=== PATIENT | male | born 1980 | race Caucasian/White ===

== ENCOUNTER 2017-08-05 22:54 | Inpatient (IN) | payer OTHER ==
[~2017-08-05] VITALS: Ht 182.9 cm; Wt 132.9 kg
--- NOTE | 2017-08-05 23:45 | NUR ---
PT AMBULATORY TO ER BED 13. PT BIB FAMILY, PT C/O LEFT LEG CELLULITIS X 2 DAYS. PT ON OUTREACH CONSULTANT. VSS/RESP EVEN UNLABORED/NAD NOTED/SKIN WARM AND DRY/DENIES N-V-D/AFEBRILE/AOX4. AWAITING MD WU.
--- NOTE | 2017-08-06 00:10 | NUR ---
AT BEDSIDE FOR EVAL.
--- NOTE | 2017-08-06 00:27 | NUR ---
20G IV TO R AC X 1 ATTEMPT USING ASEPTIC TECH, BLOOD CULT X 2 AND BLOOD HANDED OVER TO LAB AT THE BEDSIDE. IV FLUSHES EASILY WITH NS. NO S/S INFILTRATION NOTED.
[2017-08-06] MEDS ORDERED: VANCOMYCIN 1 GM in IV D5W 250 ML IV ONE (00:30)
[2017-08-06] MEDS ORDERED: ACETAMINOPHEN 325 MG TABLET PO ONE (00:30)
[2017-08-06] MEDS ORDERED: CEFTRIAXONE 1 G in IV D5W 50 ML IV ONE (00:30)
[2017-08-06] MEDS ORDERED: IV NS 0.9% 1,000 ML BAG IV ONE ×3 (00:30→02:00)
[2017-08-06 00:31] LABS: BASOPHILS % (AUTO) 0.3 % (0.0-2.0); EOSINOPHILS % (AUTO) 2.1 % (0.0-6.0); HEMATOCRIT 36 % (39-51); HEMOGLOBIN 12.4 g/dL (13.5-17.5); LYMPHOCYTES # (AUTO) 1.6 /CMM (0.8-4.8); LYMPHOCYTES % (AUTO) 15.4 % (20.0-44.0); MEAN CORPUSCULAR HGB CONC 34 g/dl (31.0-36.0); MEAN CORPUSCULAR VOLUME 75 fL (80-96); MONOCYTES # (AUTO) 1.1 /CMM (0.1-1.30); MONOCYTES % (AUTO) 10.9 % (2.0-12.0); NEUTROPHILS # (AUTO) 7.5 /CMM (1.8-8.9); NEUTROPHILS % (AUTO) 71.3 % (43.0-81.0); PLATELET COUNT (AUTO) 337 /CMM (150-450); RDW COEFFICIENT OF VARIATION 13.4 (11.5-15.0); RED BLOOD CELL COUNT(AUTO) 4.85 MIL/uL (4.5-6.0); WHITE BLOOD COUNT (AUTO) 10.4 K/uL (4.3-11.0)
[2017-08-06] MEDS ORDERED: CEFTRIAXONE 1GM BAG (ER ONLY) 50 ML IV ONE (00:39)
[2017-08-06] MEDS ORDERED: ACETAMINOPHEN ES 500 MG TABLET ONE (00:40)
[2017-08-06] MEDS ORDERED: VANCOMYCIN 1 GM VIAL ONE (00:40)
--- NOTE | 2017-08-06 00:57 | NUR ---
DUPLEX AT BEDSIDE.
[2017-08-06 01:09] LABS: INR 1.04 (0.87-1.13)
[2017-08-06 01:13] LABS: ALANINE AMINOTRANSFERASE 27 U/L (12-78); ALBUMIN 1.5 g/dL (3.4-5.0); ALKALINE PHOSPHATASE 61 U/L (46-116); ASPARTATE AMINOTRANSFERASE 32 U/L (15-37); BILIRUBIN,DIRECT 0.1 mg/dL (0.0-0.2); BILIRUBIN,TOTAL 0.2 mg/dL (0.2-1.0); CALCIUM, SERUM 8.4 mg/dL (8.5-10.1); CARBON DIOXIDE 26 mmol/L (21-32); CHLORIDE 101 mmol/L (98-107); CREATININE 1.1 mg/dL (0.6-1.3); LIPASE 240 U/L (73-393); POTASSIUM 3.6 mmol/L (3.5-5.1); SODIUM SERUM 133 mmol/L (136-145); TOTAL PROTEIN, SERUM 6.4 g/dL (6.4-8.2); TROPONIN I < 0.017 ng/mL (0.00-0.056); UREA NITROGEN, BLOOD 15 mg/dL (7-18)
[2017-08-06 01:16] LABS: GLUCOSE 389 mg/dL (74-106)
[2017-08-06 01:25] LABS: APPEARANCE,URINE CLEAR (CLEAR); BILIRUBIN,URINE NEGATIVE (NEGATIVE); BLOOD, URINE 2+ Ery/uL (NEGATIVE); COLOR,URINE YELLOW (YELLOW); KETONES,URINE NEGATIVE (NEGATIVE); LEUKOCYTE ESTERASE ,URINE NEGATIVE (NEGATIVE); NITRITE, URINE NEGATIVE (NEGATIVE); PROTEIN,URINE 3+ mg/dl (NEGATIVE); UGLUCOSE 3+ mg/dL (NEGATIVE)
[2017-08-06 01:29] LABS: BACTERIA,URINE Few /HPF (None Seen); FINE GRANULAR CASTS,URINE Few /LPF (None Seen); SQUAMOUS EPITHELIAL CELL,UR Moderate /HPF (None Seen)
[2017-08-06] MEDS ORDERED: INSULIN REGULAR, HUMAN 100 UNIT/ML 10 ML VIAL SQ ONE (01:30)
[2017-08-06] MEDS ORDERED: INSULIN REGULAR, HUMAN 100 UNIT/ML 10 ML VIAL ONE (01:39)
--- NOTE | 2017-08-06 01:44 | NUR ---
regular insulin 6 units sq witnessed with Carrie LÓPEZ
--- NOTE | 2017-08-06 01:58 | NUR ---
REPORT GIVEN TO MARIBEL HAWK FOR KANDY.
[2017-08-06] MEDS ORDERED: HYDROCODONE/APAP 10/325MG 1 EA TABLET PO PRN (02:00)
[2017-08-06] MEDS ORDERED: MAGNESIUM HYDROXIDE 30 ML UDC PO PRN (02:00)
[2017-08-06] MEDS ORDERED: DEXTROSE 50%-WATER 50 ML DISP.SYRIN IV PRN (02:00)
[2017-08-06] MEDS ORDERED: ONDANSETRON HCL/PF 4 MG/2 ML VIAL IVP PRN (02:00)
[2017-08-06] MEDS ORDERED: Z GUARD REMEDY 2 OZ OINT TP PRN (02:00)
[2017-08-06] MEDS ORDERED: VANCOMYCIN 1 GM in IV NS 0.9% 250 ML IV SCH (02:00)
[2017-08-06] MEDS ORDERED: ZOLPIDEM TARTRATE 5 MG TABLET PO PRN (02:00)
[2017-08-06] MEDS ORDERED: MAG HYDROX/AL HYDROX/SIMETH 30 ML UDC PO PRN (02:00)
[2017-08-06] MEDS ORDERED: ENOXAPARIN SODIUM 40 MG/0.4 ML DISP.SYRIN SQ SCH (02:00)
[2017-08-06] MEDS ORDERED: HYDROCODONE/APAP 5/325MG 1 EACH TABLET PO PRN (02:00)
--- NOTE | 2017-08-06 02:08 | NUR ---
PT TRANSPORTED VIA STRETCHER TO MS RM 202 WITH EMT. VSS.
[2017-08-06 02:10] VITALS: BP 141/85
[2017-08-06 02:15] VITALS: BP 141/84
--- NOTE | 2017-08-06 02:15 | NUR ---
MS GALLEY COOK NOTES ADMITTED THIS 37 Y.O.MALE FROM ER PER HERBER WITH CELLULITIS OF LEFT LOWER LEG.A/O X4.ABLE TO AMBULATE.NOTED OLD SMALL WOUND WITH SCAB ON RIGHT LOWER LEG,BRUISE ON RIGHT UPPER ARM.C/O PAIN 4/10 ON PAIN SCALE,TOLERABLE PER PATIENT.WITH KNOWN HX OF MRSA 2 YRS AGO,PER NURSING DRY ROOM OPERATOR,NO NEED TO ISOLATE.SALINE LOCK RIGHT AC INTACT AND PATENT.STARTED ON NS AT 75ML/HR RATE.LOVENOX 4MG SQ ALSO STARTED.CALL LIGHT IN REACH,NEEDS ANTICIPATED.
[2017-08-06] MEDS ORDERED: VANCOMYCIN IV ONE (03:00)
[2017-08-06] MEDS ORDERED: D5W IV ONE (03:00)
--- NOTE | 2017-08-06 03:30 | NUR ---
MS RN NOTES WENT DOWN TO GRAB SOMETHING ON THE VENDING MACHINE ACCOMPANIED BY JADON RAMACHANDRAN.
[2017-08-06] MEDS: IV NS 0.9% 1,000 ML IV PRN (04:57)
--- NOTE | 2017-08-06 05:30 | NUR ---
MS RN NOTES ACCU-CHECK BLOOD SUGAR CHECK 292,KRISTI DAY NURSE WILL ADMINISTER HUMULIN R 9 UNITS PER MODERATE SLIDING SCALE.
[2017-08-06] MEDS: INSULIN REGULAR, HUMAN 100 UNIT/ML 3 ML VIAL SQ PRN ×4 (05:52→17:17)
--- NOTE | 2017-08-06 07:11 | NUR ---
MS RN NOTES CALM AND QUIET THRU OUT SHIFT,PAIN TOLERABLE SINCE ADMISSION.IVF IN PROGRESS.CALL LIGHT IN REACH,NEEDS ATTENDED.ENDORSED TO KRISTI LÓPEZ FOR KANDY.
--- NOTE | 2017-08-06 07:30 | NUR ---
RN OPEN NOTES RECEIVED REPORT FROM BUYER PLANNER NURSE. PATIENT IS IN BED, AWAKE AND ALERT. ORIENTED TO NAME, PLACE AND TIME. NO SIGNS AND SYMPTOMS OF DISTRESS. REFUSED GOWN AND WOULD LIKE TO STAY IN HIS SHIRT AND PANTS. BED IN LOW POSITION, LOCKED AND TWO SIDE RAILS ARE UP FOR SAFETY. CALL LIGHT WITHIN REACH. WILL CONTINUE TO MONITOR PATIENT
[2017-08-06 08:00] VITALS: BP 169/104
[2017-08-06] MEDS: BLOOD SUGAR DIAGNOSTIC 1 EACH STRIP VI SCH ×4 (08:07→22:56)
[2017-08-06] MEDS ORDERED: FEE PK DOSING 1 MIN EA MC ONE (09:50)
--- NOTE | 2017-08-06 10:56 | NUR ---
VANCOMYCIN IS NOT AVAILABLE. PHARMACY NOTIFIED.
[2017-08-06] MEDS: VANCOMYCIN 1.25 GM in IV D5W 500 ML IV SCH ×2 (11:59→17:12)
--- NOTE | 2017-08-06 15:55 | NUR ---
CALLED ABELINO SANTOYO REGARDING PATIENT HIGH BLOOD PRESSURE. COUNTERSINKER WILL ENTER BP MEDS
[2017-08-06 16:00] VITALS: BP 160/90
[2017-08-06] MEDS: ACETAMINOPHEN 325 MG TABLET PO PRN (16:04)
--- NOTE | 2017-08-06 16:19 | NUR ---
NATANAEL ROCA NP CALLED BACK THAT HE WILL ENTER THE BLOOD PRESSURE MEDS IN AN HOUR. NO TELEPHONE ORDERED RECEIVED
[2017-08-06] MEDS: hydrALAZINE HCL IV 20 MG VIAL IV PRN (16:35)
--- NOTE | 2017-08-06 16:35 | NUR ---
Hydralazine administered. Will recheck BP within 30 min for changes
[2017-08-06 17:20] VITALS: BP 136/79
--- NOTE | 2017-08-06 18:58 | NUR ---
RN CLOSING NOTES PATIENT IS AWAKE AND RESTING AT BED. MOTHER AT BEDSIDE. BED IN LOW POSITION, LOCKED AND TWO SIDE RAILS ARE UP. CALL LIGHT WITHIN REACH FOR SAFETY. IV SITE IN INTACT AND PATENT. ORIENTED TO NAME, TIME AND PLACE. ON ROOM AIR, TOLERATING WELL WITH NO SHORTNESS OF BREATH NOTED. ALL NEEDS AND CARE ATTENDED. PATIENT KEPT CLEAN, DRY AND SAFE. ALL ENDORSE TO DESIGN MAINTENANCE ENGINEER NURSE.
--- NOTE | 2017-08-06 19:30 | NUR ---
MS LÓPEZ NOTES RECEIVED RESTING COMFORTABLY ON BED,DENIES PAIN.REMAINS NPO EXCEPT MEDS AND WATER,AWAITING FOR OVA AND PARASITE STOOL EXAM RESULT.SALINE LOCK LAC INTACT AND PATENT,NS AT 100ML/HR RATE IN PROGRESS.AMBULATES TO THE TOILET.WILL CONTINUE FOR LOOSE BM.CALL LIGHT IN REACH,NEEDS ANTICIPATED Addendum: 08/06/17 at 2007 by LINH GOODEN RN WRONG ENTRY OF NOTES
--- NOTE | 2017-08-06 19:50 | NUR ---
MS RN NOTES ON BED CONVERSING WITH FAMILY MEMBERS.LEFT LEG REMAINS SWOLLEN AND REDDISH.SALINE LOCK RIGHT AC INTACT AND PATENT,IVF IN PROGRESS.ENCOURAGE TO ELEVATE LOWER EXTREMITIES ON PILLOWS WHILE ON BED.CALL LIGHT IN REACH,NEEDS ANTICIPATED.
[2017-08-06 20:00] VITALS: BP 145/87
[2017-08-06] MEDS: ENOXAPARIN SODIUM 40 MG/0.4 ML DISP.SYRIN SQ SCH (21:28)
--- NOTE | 2017-08-06 22:45 | NUR ---
MS RN NOTES ACCU-CHECK BLOOD SUGAR CHECK 353,HUMULIN 10UNITS ADMINISTERED SQ ON LEFT DELTOID PER MODERATE SLIDING SCALE.
--- NOTE | 2017-08-06 22:57 | NUR ---
MS RN NOTES C/O CONSTIPATION,MILK OF MAGNESIA 30ML PO GIVEN ORDERED.
[2017-08-06] MEDS: *INSULIN REGULAR(HUMULIN R)HUM 100 UNIT/ML VIAL SQ PRN (23:04)
[2017-08-06] MEDS: CEFTRIAXONE 1 G in IV NS 0.9% 50 ML IV SCH (23:47)
[2017-08-07] MEDS: VANCOMYCIN 1.25 GM in IV D5W 500 ML IV SCH ×3 (02:06→17:40)
--- NOTE | 2017-08-07 03:00 | NUR ---
MS RN NOTES IV SITE INFILTRATED.NEW SALINE LOCK PLACE ON LEFT AC #20,SAME IV ABX INFUSING AT THIS TIME.
--- NOTE | 2017-08-07 06:30 | NUR ---
MS RN NOTES DR MEYER MADE AWARE ALSO THAT PATIENT REFUSING NORCO DUE TO HEADACHE THAT CAUSE IT.NO FURTHER ORDERS GIVEN.PATIENT MADE AWARE.
--- NOTE | 2017-08-07 06:30 | NUR ---
MS RN NOTES DR MEYER MADE AWARE OF PATIENT BLOOD SUGAR,WITH ORDER TO GIVE 20 UNITS OF HUMULIN FOR BLOOD SUGAR OF 433.ASYMPTOMATIC,NON COMPLIANT,EAT A LOT,ALSO SOUP IN THE MORNING.
--- NOTE | 2017-08-07 06:45 | NUR ---
MS RN NOTES PATIENT INSISTED TO HAVE WARM SHOWER.HE WANTS TO RUN WARM WATER ON HIS LEGS TO RELIEVE PAIN.HE WAS ADVISED NOT TO FOR HE IS PRONE TO DEVELOP BLISTER ON THAT SITUATION BUT HE STILL INSIST.
[2017-08-07] MEDS: BLOOD SUGAR DIAGNOSTIC 1 EACH STRIP VI SCH ×4 (06:47→21:45)
[2017-08-07] MEDS ORDERED: INSULIN REGULAR, HUMAN 100 UNIT/ML 3 ML VIAL SQ ONE (07:00)
--- NOTE | 2017-08-07 07:16 | NUR ---
MS RN NOTES PHARMACY MADE AWARE THAT VANCOMYCIN DOSE HUNG AT 0200 WAS BARELY INFUSED.PATIENT HAS NEW SALINE LOCK #20 ON LEFT AC BUT HE KEEPS ON BENDING HIS ELBOW,TENDENCY,MACHINE KEEPS ON BEEPING,IT SAYS OCCLUSIONS.PHARMACIST WILL TAKE A LOOK ON IT.RADHA RN MADE AWARE.
--- NOTE | 2017-08-07 07:24 | NUR ---
MS RN NOTES HARD TO PLEASE,NON COMPLIANT WITH CARE.IN NO ACUTE DISTRESS.ENDORSED TO RADHA LÓPEZ FOR KANDY.
[2017-08-07 07:34] LABS: CREATININE 1.1 mg/dL (0.6-1.3); MAGNESIUM 2.5 mg/dL (1.8-2.4); PHOSPHORUS 3.1 mg/dL (2.5-4.9); POTASSIUM 3.9 mmol/L (3.5-5.1)
[2017-08-07 07:37] LABS: THYROID STIMULATING HORMONE 5.023 uIU/mL (0.358-3.74)
--- NOTE | 2017-08-07 07:50 | NUR ---
MS RN NOTES PATIENT JUST HAD SHOWER AND BACK TO BED, LEFT LOWER LEG APPEARS RED AND SWOLLEN. PATIENT IS A/O X4, AMBULATORY. IV ANTIBIOTIC VANCOMYCIN NOT FINISHED INFUSING ON THE SCHEDULED TIME. NEW PLACED IVC CATH IN LEFT AC G20 BY NIGHT RN APPEARS INTACT, ATTEMPTED TO FLUSH WITH SALINE TO CHECK PATENCY, BUT PATIENT REFUSING, STATING HE KNOWS HE'S ARM AND HE FLUSHED HIS IV WITH RN LAST NIGHT, STILL NOT WORKING AND WANTS A NEW IV LINE TO BE PLACED IN AGAIN. PATIENT APPEARS DEMANDING AND NOT ACCEPTING EDUCATION AND TEACHING FROM RN. SAFETY MEASURES IN PLACE.
[2017-08-07 07:55] LABS: BASOPHILS # (AUTO) 0.1 /CMM (0.0-0.2); BASOPHILS % (AUTO) 0.5 % (0.0-2.0); HEMATOCRIT 34 % (39-51); HEMOGLOBIN 11.5 g/dL (13.5-17.5); LYMPHOCYTES # (AUTO) 1.6 /CMM (0.8-4.8); LYMPHOCYTES % (AUTO) 14.9 % (20.0-44.0); MEAN CORPUSCULAR HGB CONC 34 g/dl (31.0-36.0); MEAN CORPUSCULAR VOLUME 74 fL (80-96); MONOCYTES # (AUTO) 0.9 /CMM (0.1-1.30); MONOCYTES % (AUTO) 8.5 % (2.0-12.0); NEUTROPHILS # (AUTO) 7.8 /CMM (1.8-8.9); NEUTROPHILS % (AUTO) 73.1 % (43.0-81.0); PLATELET COUNT (AUTO) 402 /CMM (150-450); RDW COEFFICIENT OF VARIATION 13.3 (11.5-15.0); RED BLOOD CELL COUNT(AUTO) 4.51 MIL/uL (4.5-6.0); WHITE BLOOD COUNT (AUTO) 10.6 K/uL (4.3-11.0)
[2017-08-07 08:00] VITALS: BP 140/92
--- NOTE | 2017-08-07 10:08 | NUR ---
IVC RE INSERTION BY ANOTHER RN, UNSUCCESSFUL X2. PATIENT AGREED TO USE CURRENT IV LINE IN LEFT AC, PATENT AND INTACT.
[2017-08-07 10:25] LABS: EOSINOPHILS % (MANUAL) 3 % (0-4); LYMPHOCYTES % (MANUAL) 17 % (16-48); MONOCYTES % (MANUAL) 12 % (0-11.0); NEUTROPHILS % (MANUAL) 68 (42-76)
[2017-08-07] MEDS: IV NS 0.9% 1,000 ML IV PRN (10:37)
[2017-08-07] MEDS: INSULIN REGULAR, HUMAN 100 UNIT/ML 3 ML VIAL SQ PRN ×2 (12:33→17:46)
[2017-08-07] MEDS ORDERED: FENTANYL PF 100MCG/2ML AMPUL IJ PRN (14:00)
--- NOTE | 2017-08-07 14:45 | NUR ---
DR. POTTS ORDERED DEBRIDEMENT WOUND, PATIENT CONSENTED THE PROCEDURE. LEFT HEEL WOUND DEBRIDEMENT AT THE BEDSIDE PERFORMED BY DR. SANCHEZ. PATIENT TOLERATED PROCEDURE WELL.
[2017-08-07] MEDS: LACTOBACILLUS RHAMNOSUS GG 1 EACH CAP.SPRINK PO SCH ×2 (17:39→18:12)
--- NOTE | 2017-08-07 18:13 | NUR ---
PROBIOTIC LACTUBACILLUS CAPSULE NON ADMINISTERED, PRESENTED MEDICATION-LACTOBACILLUS CAPSULE TO PATIENT IN GOOD CONDITION, UNOPENED CAPSULE NOT PUNCTURED. PER PATIENT REQUEST LEAVE MEDICATION AT THE BEDSIDE TABLE AND HE WILL TAKE IT. AFTER FEW MINUTES, PATIENT REPORTED CAPSULE WAS OPENED AND REFUSING TO TAKE THE MEDICATION.
--- NOTE | 2017-08-07 19:00 | NUR ---
MS RR CLOSING NOTES DENIES PAIN, LEFT HEEL DRESSING IN PLACE, NO BLEEDING NOTED. BLOOD SUGAR MONITORED WITH ISS COVERAGE GIVEN. IV ANTIBIOTIC NOT INFUSING, PATIENT IS NON COMPLIANT WITH IVF INFUSION AND ANTIBIOTIC IV, PATIENT STATING "HE WILL CONNECT HIMSELF TO THE IV LATER". SAFETY MEASURES IN PLACE, WILL ENDORSE TO ONCOMING RN .
--- NOTE | 2017-08-07 19:40 | NUR ---
rn note; RECEIVED PT SITTING AT THE EDGE OF THE BED. BREATHING EVENLY. NO SOB. NAD. STILL W/ LLE REDNESS AND SWELLING ON ONGOING IV ATB. DRESSING ON L HELL C/D/I. PT WAS INSTRUCTED TO AVOID PRESSURE ON THE SITE. NEEDS ATTENDED . CALL LIGHT WITHIN REACH. WILL CONT TO MONITOR .
[2017-08-07 20:00] VITALS: BP 160/90
[2017-08-07] MEDS: ENOXAPARIN SODIUM 40 MG/0.4 ML DISP.SYRIN SQ SCH (21:38)
[2017-08-07] MEDS: *INSULIN REGULAR(HUMULIN R)HUM 100 UNIT/ML VIAL SQ PRN (21:53)
[2017-08-07] MEDS: INSULIN GLARGINE, 100 UNIT/ML CARTRIDGE SQ SCH (21:53)
[2017-08-07] MEDS ORDERED: TEMAZEPAM 7.5 MG CAPSULE PO PRN (23:30)
[2017-08-07] MEDS: CEFTRIAXONE 1 G in IV NS 0.9% 50 ML IV SCH (23:59)
[2017-08-08] MEDS: VANCOMYCIN 1.25 GM in IV D5W 500 ML IV SCH ×3 (02:29→17:46)
[2017-08-08] MEDS: BLOOD SUGAR DIAGNOSTIC 1 EACH STRIP VI SCH ×4 (06:46→21:38)
--- NOTE | 2017-08-08 06:56 | NUR ---
PT IN BED SLEEPING, AROUSES EASILY. BREATHING EVENLY. NO SOB. NO ACUTE EVENT DURING THE NIGHT. REMAINED ON IVF HYDRATION. NO C/O PAIN OR DISCOMFORT .NEEDS ATTENDED. BED LOW LOCKED. CALL LIGHT WITHIN REACH.WILL CONT TO MONITOR AND WILL ENDORSE TO AM SHIFT FOR KANDY .
[2017-08-08] MEDS: INSULIN REGULAR, HUMAN 100 UNIT/ML 3 ML VIAL SQ PRN ×3 (06:59→17:45)
--- NOTE | 2017-08-08 07:30 | NUR ---
ms rn initial notes Received patient in bed, asleep, head of bed elevated, no SOB or distress noted, on room air and tolerated well. Patient is alert and oriented x 4, verbally responsive and able to make needs known. IV intact and patent with NS @ 75ml/hr, infusing well. No facial grimace noted, looks comfortable at the moment. Call light with in patient reach, will continue to monitor accordingly.
--- NOTE | 2017-08-08 07:50 | NUR ---
WOUND CARE CONSULT WOUND CARE RECEIVED CONSULT FOR LLE CELLULITIS. WOUND CARE WILL DEFER CONSULT AND TREATMENT PLANS TO SURGICAL TEAM AT THIS TIME DPM CURRENTLY FOLLOWING. PATIENT WITH MICHAEL AT 22.
[2017-08-08 08:00] VITALS: BP 150/75
[2017-08-08] MEDS ORDERED: HYDROGEL DRESSING 90 GM TUBE TP PRN (08:00)
[2017-08-08] MEDS: HYDROGEL DRESSING 90 GM TUBE TP SCH (09:26)
[2017-08-08] MEDS: LACTOBACILLUS RHAMNOSUS GG 1 EACH CAP.SPRINK PO SCH ×2 (09:26→17:44)
[2017-08-08 10:30] LABS: BASOPHILS # (AUTO) 0.1 /CMM (0.0-0.2); BASOPHILS % (AUTO) 0.5 % (0.0-2.0); HEMATOCRIT 33 % (39-51); HEMOGLOBIN 11.2 g/dL (13.5-17.5); LYMPHOCYTES % (AUTO) 19.5 % (20.0-44.0); MEAN CORPUSCULAR HGB CONC 34 g/dl (31.0-36.0); MEAN CORPUSCULAR VOLUME 74 fL (80-96); MONOCYTES # (AUTO) 0.9 /CMM (0.1-1.30); MONOCYTES % (AUTO) 8.5 % (2.0-12.0); NEUTROPHILS # (AUTO) 6.9 /CMM (1.8-8.9); NEUTROPHILS % (AUTO) 67.5 % (43.0-81.0); PLATELET COUNT (AUTO) 449 /CMM (150-450); RDW COEFFICIENT OF VARIATION 13.6 (11.5-15.0); RED BLOOD CELL COUNT(AUTO) 4.43 MIL/uL (4.5-6.0); WHITE BLOOD COUNT (AUTO) 10.3 K/uL (4.3-11.0)
[2017-08-08 10:31] LABS: CALCIUM, SERUM 8.1 mg/dL (8.5-10.1); POTASSIUM 3.8 mmol/L (3.5-5.1)
[2017-08-08 16:00] VITALS: BP 163/98
[2017-08-08] MEDS: INSULIN LISPRO/ASPART 100 UNIT/ML CARTRIDGE SQ SCH (17:46)
--- NOTE | 2017-08-08 19:25 | NUR ---
ms rn closing notes All needs provided, attended, and anticipated. In stable condition at this time. Endorsed to next shift RN to continue care.
--- NOTE | 2017-08-08 19:30 | NUR ---
RECEIVED PT IN BED SLEEPING, . AROUSES EASILY. BREATHING EVENLY NO SOB. NAD .SKIN WARM AND DRY. ON ONGOING IVF HYDRATION PRASHANT WELL . NO C/O PAIN OR DISCOMFORT AT THIS TIME. CALL LIGHT WITHIN REACH, WILL CONT TO MONITOR , FAMILY AT THE BED SIDE
[2017-08-08 20:00] VITALS: BP 159/99
[2017-08-08] MEDS: INSULIN GLARGINE, 100 UNIT/ML CARTRIDGE SQ SCH (21:46)
[2017-08-08] MEDS: *INSULIN REGULAR(HUMULIN R)HUM 100 UNIT/ML VIAL SQ PRN (21:46)
[2017-08-08] MEDS: ENOXAPARIN SODIUM 40 MG/0.4 ML DISP.SYRIN SQ SCH (21:47)
[2017-08-08] MEDS: CEFTRIAXONE 1 G in IV NS 0.9% 50 ML IV SCH (23:50)
[2017-08-08] MEDS: IV NS 0.9% 1,000 ML IV PRN (23:55)
[2017-08-09] MEDS: VANCOMYCIN 1.25 GM in IV D5W 500 ML IV SCH ×2 (01:28→12:38)
[2017-08-09] MEDS: hydrALAZINE HCL IV 20 MG VIAL IV PRN ×3 (01:28→16:18)
--- NOTE | 2017-08-09 01:32 | NUR ---
HYDRALAZINE GIVEN ORDERED FOR SBP> 160. WILL CONT TO MONITOR,
--- NOTE | 2017-08-09 04:18 | NUR ---
FENTANYL GIVEN ORDERED PER PT'S REQUEST TFOR C/O SEVERE LLE PAIN. WILL CONT TO MONITOR
[2017-08-09] MEDS: BLOOD SUGAR DIAGNOSTIC 1 EACH STRIP VI SCH ×4 (06:58→21:30)
[2017-08-09] MEDS: INSULIN REGULAR, HUMAN 100 UNIT/ML 3 ML VIAL SQ PRN ×2 (06:59→12:44)
--- NOTE | 2017-08-09 07:39 | NUR ---
PT IN BED SLEEPING AROUSES EASILY. BREATHING EVENLY. NO SOB. NO ACUTE EVENT DURING THE NIGHT. PAIN MEDIATION GIVEN ORDERED PER PT'S REQUEST AND WARM COMPRESS APPLIED . EFFECTIVE. NEEDS ATTENDED. REPORT GIVEN TO BEAU GAITAN.
[2017-08-09 08:00] VITALS: BP 159/80
[2017-08-09 08:20] VITALS: BP 164/98
--- NOTE | 2017-08-09 08:22 | NUR ---
RN NOTES REASSESSMENT DONE AFTER 30 MINS OF HYDRALAZINE ADMINISTRATION. BP AT 164/98 WITH HR OF 100. PATIENT DENYING HEADACHES AND DENYING CHEST PAIN
[2017-08-09 08:40] VITALS: BP 159/80
[2017-08-09] MEDS: INSULIN LISPRO/ASPART 100 UNIT/ML CARTRIDGE SQ SCH ×2 (09:20→18:30)
[2017-08-09] MEDS: LACTOBACILLUS RHAMNOSUS GG 1 EACH CAP.SPRINK PO SCH ×2 (09:20→16:20)
--- NOTE | 2017-08-09 10:33 | NUR ---
PATIENT REFUSING BLOOD DRAW FOR VANCO TROUGH WELL BMP. BENEFITS AND RISKS EXPLAINED TO PATIENT. OFFERED MULTIPLE TIMES. STILL REFUSING. PHARMACY NOTIFIED. PER MAXINE FROM PHARMACY, OK TO GIVE CURRENT VANCO DOSE OF 1.25 GM, ORDER READBACK
[2017-08-09] MEDS: HYDROGEL DRESSING 90 GM TUBE TP SCH (14:00)
[2017-08-09 16:00] VITALS: BP 174/85
--- NOTE | 2017-08-09 16:21 | NUR ---
HYDRALAZINE ADMINISTERED PER ORDERS. BP AT 171/89 WITH HR OF 98. DENYING CHEST PAIN. NONLABORED BREATHING NOTED ON ROOM AIR. DENYING HEADACHES. NO TELE BOX REQUIRED PER PROTOCOL. PATIENT ALSO REFUSING WOUND TREATMENT. BENEFITS AND RISKS EXPLAINED. DR SANCHEZ NOTIFIED
--- NOTE | 2017-08-09 17:00 | NUR ---
PATIENT REFUSING TO HAVE BLOOD PRESSURE REASSESSED.
[2017-08-09] MEDS: VANCOMYCIN 1 GM in IV D5W 250 ML IV SCH (18:00)
--- NOTE | 2017-08-09 18:00 | NUR ---
PATIENT REFUSING INSULIN AND BLOOD SUGAR CHECK. REFUSING VANCOMYCIN WELL. BENEFITS AND RISKS EXPLAINED. IV SITE PATENT AND INTACT. OFFERED TO START ANOTHER IV ON PATIENT. PATIENT STATING " I DONT WANT YOU POKING ME!" BENEFITS AND RISKS EXPLAINED
--- NOTE | 2017-08-09 18:30 | NUR ---
BENEFITS AND RISKS OF TREATMENT EXPLAINED TO PATIENT MULTIPLE TIMES DURING SHIFT
--- NOTE | 2017-08-09 19:30 | NUR ---
RN NOTES RECEIVED PATIENT IN BED AWAKE, AO X 3, ABLE TO MAKE NEEDS KNOWN. NO ACUTE DISTRESS NOTED. DENIES ANY PAIN AT THIS TIME. NO SYMPTOMS OF HYPER/HYPOGLYCEMIA. IV SITE PATENT, INTACT; FLUSHED. LEFT FOOT DRESSING INTACT. SAFETY REMINDERS GIVEN. ON LOW BED WITH BILATERAL UPPER SIDE RAILS UP. CALL CHRIS WITHIN EASY REACH. WILL CONTINUE TO MONITOR.
--- NOTE | 2017-08-09 19:30 | NUR ---
PATIENT RESTING IN BED. NONLABORED BREATHING NOTED ON ROOM AIR. PATIENT AOX4. IV SITE ON LEFT AC PATENT AND INTACT. BED IN LOWEST LOCKED POSITION. CALL LIGHT WITHIN REACH. PATIENT STABLE THROUGHOUT SHIFT. ENDORSED TO NEXT SHIFT
[2017-08-09 20:00] VITALS: BP 150/80
--- NOTE | 2017-08-09 20:23 | NUR ---
BROWN VERA NP, NOTIFIED THAT PATIENT REFUSING MEDICATIONS, INSULIN, BMP, WELL ANTIBIOTICS
[2017-08-09] MEDS: INSULIN GLARGINE, 100 UNIT/ML CARTRIDGE SQ SCH (21:34)
[2017-08-09] MEDS: ENOXAPARIN SODIUM 40 MG/0.4 ML DISP.SYRIN SQ SCH (21:34)
[2017-08-09] MEDS: *INSULIN REGULAR(HUMULIN R)HUM 100 UNIT/ML VIAL SQ PRN (21:38)
[2017-08-10] MEDS: CEFTRIAXONE 1 G in IV NS 0.9% 50 ML IV SCH ×2
[2017-08-10] MEDS: VANCOMYCIN 1 GM in IV D5W 250 ML IV SCH ×2 (02:00→14:00)
--- NOTE | 2017-08-10 06:30 | NUR ---
N NOTES PATIENT ASLEEP, EASILY AROUSABLE. RESPIRATIONS EVEN. NO SIGNS OF PAIN NOTED. NO SYMPTOMS OF HYPER/HYPOGLYCEMIA. PATIENT REFUSED IV ANTIBIOTICS. NEEDS ATTENDED. SAFETY PRECAUTIONS AND COMFORT MEASURES IN PLACE. WILL GIVE REPORT TO DAY SHIFT FOR CONTINUITY OF CARE.
[2017-08-10] MEDS: BLOOD SUGAR DIAGNOSTIC 1 EACH STRIP VI SCH ×2 (06:35→12:46)
[2017-08-10] MEDS: INSULIN REGULAR, HUMAN 100 UNIT/ML 3 ML VIAL SQ PRN ×2 (06:36→12:45)
[2017-08-10 08:00] VITALS: BP 170/91
--- NOTE | 2017-08-10 08:16 | NUR ---
PER BROWN VERA NP, CATAPRES 0.1 PO Q 6 HOURS PRN FOR SBP GREATER THAN 180 OR DBP GREATER THAN 110
[2017-08-10] MEDS ORDERED: CLONIDINE HCL 0.1 MG TABLET PO PRN (08:30)
[2017-08-10 09:01] VITALS: BP 158/80
[2017-08-10] MEDS: ACETAMINOPHEN 325 MG TABLET PO PRN (09:06)
[2017-08-10] MEDS: LACTOBACILLUS RHAMNOSUS GG 1 EACH CAP.SPRINK PO SCH (09:07)
[2017-08-10] MEDS: INSULIN LISPRO/ASPART 100 UNIT/ML CARTRIDGE SQ SCH (09:15)
--- NOTE | 2017-08-10 12:00 | NUR ---
PATIENT REFUSING VANCOMYCIN. BENEFITS AND RISKS EXPLAINED. PATIENT STATES THAT MEDICATION IS BURNING HIS VEINS. OFFERED PATIENT TO START ANOTHER IV. STILL REFUSING. PATIENT ALSO REFUSING WOUND DRESSING CHANGE. STATES HE WANTS TO REST. BROWN VERA NP, NOTIFIED
[2017-08-10] MEDS: HYDROGEL DRESSING 90 GM TUBE TP SCH (14:00)
--- NOTE | 2017-08-10 14:19 | NUR ---
PATIENT REFUSING LANTUS OFFERED BY BROWN VERA NP, UPON DISCHARGE PLANNING. BENEFITS AND RISKS EXPLAINED TO PATIENT
[2017-08-10] MEDS ORDERED: ONDA4TAB5 PO (14:38)
[2017-08-10] MEDS ORDERED: OXYC-133 PO (14:38)
--- NOTE | 2017-08-10 15:37 | NUR ---
RN CLOSING NOTES: PATIENT DISCHARGED HOME PER BROWN VERA, NINO, ORDERS. PATIENT STABLE. NONLABORED BREATHING NOTED ON ROOM AIR. PATIENT DENYING PAIN. VS WNL UPON DISCHARGE. IV SITE REMOVED. PATIENT STABLE. THROUGHOUT SHIFT. AFEBRILE AT DISCHARGE. PATIENT EDUCATED ON PRESCRIBED MEDICATIONS, EXISTCARE, WOUND TREATMENT, WELL FOLLOW UP WITH PRIMARY PROVIDER. PATIENT REFUSED SKIN PICTURES WELL WOUND TREATMENT. BENEFITS AND RISKS EXPLAINED TO PATIENT THROUGHOUT SHIFT. PATIENT LEFT WITH LYFT, ACCOMPANIED BY LITIGATION ATTORNEY ASSOCIATE IN A WHEELCHAIR TO THE CAR. ALL BELONGINGS TAKEN WITH PATIENT. PRESCRIPTION GIVEN TO PATIENT. VERBALIZED UNDERSTANDING OF INSTRUCTIONS
== END 2017-08-10 15:55 | disposition home or self-care (01) | DRG 720 ==
LOC: ER 22:56 → MEDSG2 08-06 02:13
PROC: 0JBR0ZZ Excision of Left Foot Subcutaneous Tissue and Fascia, Open Approach (ICD-10-PCS; principal; 2017-08-07)
DX: A41.9 Sepsis, unspecified organism (principal); E11.621 Type 2 diabetes mellitus with foot ulcer; E11.42 Type 2 diabetes mellitus with diabetic polyneuropathy; E44.0 Moderate protein-calorie malnutrition; L97.429 Non-pressure chronic ulcer of left heel and midfoot with unspecified severity; E11.65 Type 2 diabetes mellitus with hyperglycemia; L03.116 Cellulitis of left lower limb; I10 Essential (primary) hypertension; E87.1 Hypo-osmolality and hyponatremia; F17.210 Nicotine dependence, cigarettes, uncomplicated; E66.01 Morbid (severe) obesity due to excess calories; Z68.39 Body mass index [BMI] 39.0-39.9, adult; K21.9 Gastro-esophageal reflux disease without esophagitis; Z91.14 Patient's other noncompliance with medication regimen; E03.9 Hypothyroidism, unspecified
CPT/HCPCS: 36415; 80048-TC; 80061-TC; 80076-TC; 80202-TC; 81000-TC; 82962-TC; 83605-TC; 83690-TC; 83735-TC; 84100-TC; 84439-TC; 84443-TC; 84480; 84484-TC; 85025-TC; 85730-TC; 87040-TC; 87081-TC; 93971-TC; A4216; A4606; A6248; A6402; J0360; J0696; J1650; J1815; J3010; J3370; J7030; J7040; J7050; J7060; Z7610

== ENCOUNTER 2018-03-24 03:05 | Inpatient (IN) | payer MEDICAID, OTHER ==
[~2018-03-24] VITALS: Ht 182.9 cm; Wt 139.8 kg
[~2018-03-24 03:05] MED LIST: ONDA4TAB5 PO; OXYC-133 PO
--- NOTE | 2018-03-24 03:30 | NUR ---
PT BIBSELF COMPLAINING OF BILATERAL LOWER EXTREMITY EDEMA X2 DAYS. NOTED REDNESS AND TENDER TO TOUCH ON RIGHT LOWER EXREMITY. NOTED YELLOW DISCOLORATION BILATERAL TOES. PT AAOX4. RESPIRATIONS EVEN AND UNLABORED. NO ACUTE DISTRESS NOTED AT THIS TIME. PT AMBULATORY TO ER BED 9
--- NOTE | 2018-03-24 03:31 | NUR ---
MD AT BEDSIDE FOR EVALUATION
--- NOTE | 2018-03-24 03:40 | NUR ---
US AT BEDSIDE
--- NOTE | 2018-03-24 03:52 | NUR ---
IV INITIATED RIGHT AC 20G. LABS DRAWN FROM SITE. COMPUTING TUTOR AT BEDSIDE FOR COLLECTION. IV INTACT AND PATENT. FLUIDS RUNNING PER MD ORDER
[2018-03-24 03:56] LABS: BASOPHILS % (AUTO) 0.3 % (0.0-2.0); EOSINOPHILS % (AUTO) 3.2 % (0.0-6.0); HEMATOCRIT 35 % (39-51); HEMOGLOBIN 11.6 g/dL (13.5-17.5); LYMPHOCYTES # (AUTO) 1.4 /CMM (0.8-4.8); MEAN CORPUSCULAR HGB CONC 34 g/dl (31.0-36.0); MEAN CORPUSCULAR VOLUME 78 fL (80-96); MONOCYTES # (AUTO) 0.6 /CMM (0.1-1.30); MONOCYTES % (AUTO) 8.4 % (2.0-12.0); NEUTROPHILS # (AUTO) 4.9 /CMM (1.8-8.9); NEUTROPHILS % (AUTO) 68.1 % (43.0-81.0); PLATELET COUNT (AUTO) 250 /CMM (150-450); RED BLOOD CELL COUNT(AUTO) 4.47 MIL/uL (4.5-6.0); WHITE BLOOD COUNT (AUTO) 7.2 K/uL (4.3-11.0)
[2018-03-24] MEDS ORDERED: IV NS 0.9% 1,000 ML BAG IV ONE (04:00)
[2018-03-24 04:12] LABS: CALCIUM, SERUM 7.9 mg/dL (8.5-10.1); POTASSIUM 3.9 mmol/L (3.5-5.1)
[2018-03-24] MEDS ORDERED: HYDROCODONE/APAP 10/325MG 1 EA TABLET ONE (04:53)
[2018-03-24] MEDS ORDERED: PIPERACILLIN /TAZOBACTAM 3.375 G VIAL IV ONE (04:53)
[2018-03-24] MEDS ORDERED: INSULIN REGULAR, HUMAN 100 UNIT/ML 10 ML VIAL ONE (04:54)
[2018-03-24] MEDS ORDERED: INSULIN REGULAR, HUMAN 100 UNIT/ML 10 ML VIAL SQ ONE (05:00)
[2018-03-24] MEDS ORDERED: PIPERACILLIN /TAZOBACTAM 2.25 G in IV D5W 50 ML IV ONE (05:00)
[2018-03-24] MEDS ORDERED: VANCOMYCIN 1 GM in IV D5W 250 ML IV ONE (05:00)
[2018-03-24] MEDS ORDERED: HYDROCODONE/APAP 10/325MG 1 EA TABLET PO ONE (05:00)
[2018-03-24] MEDS ORDERED: IV NS 0.9% 1,000 ML IV PRN (05:05)
[2018-03-24] MEDS ORDERED: VANCOMYCIN 1 GM VIAL ONE (05:06)
[2018-03-24] MEDS ORDERED: MORPHINE SULFATE INJ 2 MG/ML DISP.SYRIN IV STA (05:14)
[2018-03-24] MEDS ORDERED: ONDANSETRON HCL/PF 4 MG/2 ML VIAL IVP PRN (05:30)
[2018-03-24] MEDS ORDERED: HYDROCODONE/APAP 5/325MG 1 EACH TABLET PO PRN (05:30)
[2018-03-24] MEDS ORDERED: TEMAZEPAM 15 MG CAPSULE PO PRN (05:30)
[2018-03-24] MEDS ORDERED: HYDROCODONE/APAP 10/325MG 1 EA TABLET PO PRN (05:30)
[2018-03-24] MEDS ORDERED: DEXTROSE 50%-WATER 50 ML DISP.SYRIN IV PRN (05:30)
[2018-03-24] MEDS ORDERED: MAGNESIUM HYDROXIDE 30 ML UDC PO PRN (05:30)
[2018-03-24] MEDS ORDERED: ACETAMINOPHEN 325 MG TABLET PO PRN (05:30)
[2018-03-24] MEDS ORDERED: MAG HYDROX/AL HYDROX/SIMETH 30 ML UDC PO PRN (05:30)
--- NOTE | 2018-03-24 05:32 | NUR ---
GAVE REPORT TO SHARLA LÓPEZ FOR KANDY
--- NOTE | 2018-03-24 05:52 | NUR ---
PT TRANSFERRED TO MS BED 312-2 VIA WHEELCHAIR
[2018-03-24 06:15] VITALS: BP 184/108
[2018-03-24] MEDS ORDERED: MORPHINE SULFATE INJ 4 MG/ML DISP.SYRIN IV PRN ×2 (06:30→11:30)
[2018-03-24] MEDS: BLOOD SUGAR DIAGNOSTIC 1 EACH STRIP VI SCH ×4 (06:42→21:08)
[2018-03-24] MEDS: INSULIN REGULAR, HUMAN 100 UNIT/ML 3 ML VIAL SQ PRN ×3 (06:49→17:35)
--- NOTE | 2018-03-24 07:01 | NUR ---
MACHINE II ENGRAVER NOTES PT ARRIVED ON TO THE UNIT AT 0545 VIA WHEELCHAIR. ACCOMPANIED BY . PT COMPLAINS OF BILATERAL LOWER EXTREMITY EDEMA X2 DAYS. PT HAS A RIGHT AC #20 INTACT AND PATENT. PT EDUCATED TO THE USE OF THE CALL LIGHT BUTTON. ALL PT BELONGINGS ACCOUNTED FOR AND DOCUMENTED. PT BLE PICTURES TAKEN AND ADDED TO CHART. PT BLOOD SUGAR 454, 15 UNITS OF INSULIN GIVEN. PT GIVEN 2 MG OF MORPHINE. WASTED TO 2MG. SAFETY PRECAUTIONS IN PLACE, BED IN LOWEST LOCKED POSITION, X2 SIDE RAILS UP AND CALL LIGHT WITHIN REACH. WILL ENDORSE TO DAY SHIFT NURSE FOR CONTINUITY OF CARE.
--- NOTE | 2018-03-24 07:10 | NUR ---
MS RN NOTES PATIENT IN BED, ALERT ORIENTED X3, NO ACUTE DISTRESS NOTED, BREATHING UNLABORED. NO SOB NOTED, IV ACCESS PATENT AND INTACT. DENIED ANY PAIN. SAFETY MEASURES IN PLACE. CALL LIGHT WITHIN REACH. WILL CONTINUE TO MONITOR ACCORDINGLY.
[2018-03-24] MEDS ORDERED: FEE PK DOSING 1 MIN EA MC ONE (07:44)
[2018-03-24 08:00] VITALS: BP 145/83
[2018-03-24] MEDS: PANTOPRAZOLE 40 MG TABLET.DR PO SCH (08:11)
[2018-03-24] MEDS: DILTIAZEM HCL CD 240 MG PO SCH (09:53)
[2018-03-24 11:43] LABS: MAGNESIUM 1.9 mg/dL (1.8-2.4); PHOSPHORUS 3.4 mg/dL (2.5-4.9)
[2018-03-24] MEDS ORDERED: PIPERACILLIN /TAZOBACTAM 2.25 G in IV D5W 50 ML IV SCH (12:00)
[2018-03-24 14:39] LABS: CALCIUM, SERUM 7.2 mg/dL (8.5-10.1); CREATININE 1.3 mg/dL (0.6-1.3); POTASSIUM 3.7 mmol/L (3.5-5.1)
[2018-03-24 16:00] VITALS: BP 149/90
[2018-03-24] MEDS: VANCOMYCIN 1.5 GM in IV D5W 500 ML IV SCH (17:33)
--- NOTE | 2018-03-24 19:00 | NUR ---
MS RN NOTES PATIENT IN BED, ALERT ORIENTED X3, NO ACUTE DISTRESS NOTED, BREATHING UNLABORED. NO SOB NOTED, IV ACCESS PATENT AND INTACT. DENIED ANY PAIN. DUE MEDICATIONS GIVEN, NO ASE NOTED. NEEDS ATTENDED AND ANTICIPATED. KEPT CLEAN, DRY AND COMFORTABLE.SAFETY MEASURES IN PLACE. CALL LIGHT WITHIN REACH. ENDORSED TO NIGHT NURSE FOR CONTINUITY OF CARE.
--- NOTE | 2018-03-24 19:49 | NUR ---
MS/RN OPENING NOTES RECEIVED PATIENT IN BED, RESTING COMFORTABLY IN BED, RESPIRATIONS EVEN AND UNLABORED WITH PAIN MANAGEMENT MONITORING, SKIN WARM TO TOUCH, CAN VERBALIZES NEEDS, FAMILY AT BED SIDE.USES URINAL, CONTINENT AND MONITORING FOR S/S OF HYPO/HYPERGLYCEMIA, ON IV FLUIDS,AT 75 ML.HR, CURRENTLY IV VANCO RUNNING, LEFT AC GAUGE 20 PATENT WITH NO S/S OF INFILTRATION. WITH RIGHT LEG SWELLING DUE TO CELLULITIS. WILL F/U PATIENT REQUEST FOR PERCOCET 10-325 MG PO AND TO COLLECT URINE SAMPLE., CALL LIGHTS WITHIN REACH, BED LOCKED, WILL MONITOR.
[2018-03-24 20:00] VITALS: BP 123/98
--- NOTE | 2018-03-24 20:57 | NUR ---
MS/RN NOTES MD CONTACTED AND MADE AWARE REGARDING PAIN MEDICATION PREFERED AND HOME MEDICATION THAT IS EFFECTIVE PERCOCET 10-325 MG PO , REFUSE TO TAKE OTHER PAIN MEDICATION , MD MADE AWARE AND WILL ORDER THE PERCOCET 10-325 MG PO. MD VERA.
[2018-03-24] MEDS: oxyCODONE/APAP (5/325 MG) 1 UDTAB TABLET PO PRN (21:05)
--- NOTE | 2018-03-24 21:05 | NUR ---
MS/RN NOTES PATIENT REPORTED SEVERE PAIN IN RIGHT LEG, MD MADE AWARE REGARDING PATIENT PAIN MEDICATION AND ORDERED FOR PERCOCET 2 TABLETS 5-325 MG PO GIVEN AND PATIENT
[2018-03-24] MEDS: PIPERACILLIN /TAZOBACTAM 2.25 G in IV D5W 50 ML IV SCH (21:07)
[2018-03-24] MEDS: *INSULIN REGULAR(HUMULIN R)HUM 100 UNIT/ML VIAL SQ PRN (21:22)
[2018-03-24] MEDS: INSULIN GLARGINE, 100 UNIT/ML CARTRIDGE SQ SCH (21:23)
[2018-03-25] MEDS: PIPERACILLIN /TAZOBACTAM 2.25 G in IV D5W 50 ML IV SCH ×4 (02:37→19:54)
--- NOTE | 2018-03-25 04:30 | NUR ---
MS/RN NOTES INSTRUCTED PATIENT ABOUT URINE SAMPLE FOR COLLECTION. VERBALIZED UNDERSTANDING
[2018-03-25] MEDS: BLOOD SUGAR DIAGNOSTIC 1 EACH STRIP VI SCH ×4 (06:05→21:56)
[2018-03-25] MEDS: INSULIN REGULAR, HUMAN 100 UNIT/ML 3 ML VIAL SQ PRN ×3 (06:17→17:15)
--- NOTE | 2018-03-25 06:49 | NUR ---
312-2 MS/RN NOTES PATIETN ABLE TO SLEEP DURING THE NIGHT, PAIN MEDICATION ADMINISTERED BEFORE BEDTIME, ALERT, ORIENTED, COOPERTAIVE TO CARE, RESPIRATIONS EVEN AND UNLABORW, WILL MONITOR.WILL ENDORSE TO AM RN FOR KANDY. CALL LIGHTS WITHIN REACH, BED LOCKED, AXEL ENDORSE T
--- NOTE | 2018-03-25 07:05 | NUR ---
MS RN NOTES PATIENT IN BED, ALERT ORIENTED X3, NO ACUTE DISTRESS NOTED, BREATHING UNLABORED. NO SOB NOTED, IV ACCESS PATENT AND INTACT. HOB ELEVATED. SAFETY MEASURES IN PLACE. CALL LIGHT WITHIN REACH. WILL CONTINUE TO MONITOR ACCORDINGLY.
[2018-03-25 07:09] LABS: BASOPHILS % (AUTO) 0.3 % (0.0-2.0); EOSINOPHILS % (AUTO) 3.6 % (0.0-6.0); HEMATOCRIT 35 % (39-51); HEMOGLOBIN 11.7 g/dL (13.5-17.5); LYMPHOCYTES # (AUTO) 1.2 /CMM (0.8-4.8); LYMPHOCYTES % (AUTO) 14.3 % (20.0-44.0); MEAN CORPUSCULAR HGB CONC 34 g/dl (31.0-36.0); MEAN CORPUSCULAR VOLUME 76 fL (80-96); MONOCYTES # (AUTO) 0.6 /CMM (0.1-1.30); MONOCYTES % (AUTO) 6.9 % (2.0-12.0); NEUTROPHILS # (AUTO) 6.1 /CMM (1.8-8.9); NEUTROPHILS % (AUTO) 74.9 % (43.0-81.0); PLATELET COUNT (AUTO) 300 /CMM (150-450); RED BLOOD CELL COUNT(AUTO) 4.56 MIL/uL (4.5-6.0); WHITE BLOOD COUNT (AUTO) 8.2 K/uL (4.3-11.0)
[2018-03-25 07:27] LABS: BILIRUBIN,TOTAL 0.2 mg/dL (0.2-1.0); CREATININE 1.3 mg/dL (0.6-1.3); MAGNESIUM 1.9 mg/dL (1.8-2.4); PHOSPHORUS 2.9 mg/dL (2.5-4.9); POTASSIUM 4.3 mmol/L (3.5-5.1); TOTAL PROTEIN, SERUM 5.9 g/dL (6.4-8.2)
[2018-03-25 07:35] LABS: ALBUMIN 1.3 g/dL (3.4-5.0)
[2018-03-25 08:00] VITALS: BP 141/83
[2018-03-25] MEDS: LINAGLIPTIN 5 MG TABLET PO SCH (08:18)
[2018-03-25] MEDS: PANTOPRAZOLE 40 MG TABLET.DR PO SCH (08:18)
[2018-03-25] MEDS: DILTIAZEM HCL CD 240 MG PO SCH (08:18)
--- NOTE | 2018-03-25 08:30 | NUR ---
MS RN NOTES NOTIFIED COMPLAINT SPECIALIST NATANAEL MULLEN REGARDING ALBUMIN LEVEL OF 1.3, NO NEW ORDERS MADE AT THIS TIME.
[2018-03-25] MEDS: VANCOMYCIN 1.5 GM in IV D5W 500 ML IV SCH (12:23)
[2018-03-25] MEDS: oxyCODONE/APAP (5/325 MG) 1 UDTAB TABLET PO PRN (14:00)
[2018-03-25 16:00] VITALS: BP 133/79
[2018-03-25] MEDS: LACTOBACILLUS RHAMNOSUS GG 1 EACH CAP.SPRINK PO SCH (17:13)
[2018-03-25 18:52] LABS: APPEARANCE,URINE CLEAR (CLEAR); BILIRUBIN,URINE NEGATIVE (NEGATIVE); BLOOD, URINE 1+ Ery/uL (NEGATIVE); COLOR,URINE YELLOW (YELLOW); KETONES,URINE NEGATIVE (NEGATIVE); LEUKOCYTE ESTERASE ,URINE NEGATIVE (NEGATIVE); NITRITE, URINE NEGATIVE (NEGATIVE); PROTEIN,URINE 3+ mg/dl (NEGATIVE); UGLUCOSE 2+ mg/dL (NEGATIVE); UROBILINOGEN,URINE 0.2 EU/dL (0.2)
--- NOTE | 2018-03-25 19:00 | NUR ---
MS RN NOTES PATIENT IN BED, ALERT ORIENTED X3, NO ACUTE DISTRESS NOTED, BREATHING UNLABORED. NO SOB NOTED, IV ACCESS PATENT AND INTACT, NO REDNESS OR SWELLING NOTED. DUE MEDICATIONS GIVEN, NO ASE NOTED. NEEDS ATTENDED AND ANTICIPATED .KEPT CLEAN DRY AND COMFORTABLE. RIGHT FOOT DRESSING INTACT, CLEAN AND DRY. HOB ELEVATED. SAFETY MEASURES IN PLACE. CALL LIGHT WITHIN REACH. ENDORSED TO NIGHT NURSE FOR CONTINUITY OF CARE.
[2018-03-25 19:10] LABS: CREATININE, URINE 81.4 MG/DL (30.0-125.0)
[2018-03-25 19:27] LABS: URINE TOTAL PROTEIN 712.9 mg/dL (0-11.9)
[2018-03-25 19:42] LABS: BACTERIA,URINE 2+ /HPF (None Seen); HYALINE CASTS, URINE Rare /LPF (None Seen)
[2018-03-25 19:43] LABS: FINE GRANULAR CASTS,URINE Rare /LPF (None Seen)
[2018-03-25 19:45] LABS: EOSINOPHIL,URINE None Seen
--- NOTE | 2018-03-25 20:13 | NUR ---
RECIEVED IN BED AROUSES WHEN NAME SPOKEN AT THE BEDSIDE. SVITLANA DRESING RIGHT FOOT CDI REMINDED HIM TO CALL FOR ASSIST WHEN NEED TO GET OOB CALL LIGHT REVIEVED
[2018-03-25] MEDS: *INSULIN REGULAR(HUMULIN R)HUM 100 UNIT/ML VIAL SQ PRN (22:02)
[2018-03-25] MEDS: INSULIN GLARGINE, 100 UNIT/ML CARTRIDGE SQ SCH (22:04)
[2018-03-26] MEDS: PIPERACILLIN /TAZOBACTAM 2.25 G in IV D5W 50 ML IV SCH ×4 (02:00→20:06)
[2018-03-26] MEDS: oxyCODONE/APAP (5/325 MG) 1 UDTAB TABLET PO PRN ×2 (02:01→13:03)
[2018-03-26] MEDS: VANCOMYCIN 1.5 GM in IV D5W 500 ML IV SCH ×3 (05:43→23:25)
[2018-03-26] MEDS: BLOOD SUGAR DIAGNOSTIC 1 EACH STRIP VI SCH ×4 (06:36→21:15)
[2018-03-26] MEDS: INSULIN REGULAR, HUMAN 100 UNIT/ML 3 ML VIAL SQ PRN ×3 (06:40→17:22)
--- NOTE | 2018-03-26 07:12 | NUR ---
CALLED MD VERA MADE AWARE UNABLE TO GIVE VANCO PATIENTS IV INFILTRATED AND HE IS REFUSING TO HAVE RESTARTED NO NEW ORDERS
--- NOTE | 2018-03-26 07:32 | NUR ---
RN OPENING NOTES PT WAS RECEIVED IN BED AT LOWEST AND LOCKED POSITION WITH SIDE RAILS UP X2, A/O X3, NO S/S OF PAIN OR DISTRESS CURRENTLY, BREATHING EVEN AND UNLABORED ON RA, PT NOTED TO HAVE NO IV IN PLACE HOSPITALIST AWARE, SAFETY PRECAUTIONS IN PLACE, CALL LIGHT WITHIN REACH, WILL MONITOR ACCORDINGLY
--- NOTE | 2018-03-26 07:35 | NUR ---
PATIENT REFUSED AM LAB DRAW THIS MORNING ACCORDING TO THE AIR DEFENSE ARTILLERY OFFICER
[2018-03-26 08:00] VITALS: BP 150/80
--- NOTE | 2018-03-26 08:31 | NUR ---
WOUND CARE CONSULT WOUND CARE RECEIVED CONSULT FOR BLE REDNESS. WOUND CARE WILL DEFER CONSULT AND ALL TREATMENT PLANS TO DPM DR POTTS WHO IS CURRENTLY FOLLOWING THIS PATIENT. PATIENT WITH MICHAEL AT 19, WILL SEE PRN.
[2018-03-26] MEDS: LINAGLIPTIN 5 MG TABLET PO SCH (08:49)
[2018-03-26] MEDS: PANTOPRAZOLE 40 MG TABLET.DR PO SCH (08:49)
[2018-03-26] MEDS: LACTOBACILLUS RHAMNOSUS GG 1 EACH CAP.SPRINK PO SCH ×2 (08:49→17:11)
[2018-03-26] MEDS: HEPARIN SODIUM, PORCINE 5000 UNITS/1 ML VIAL SQ SCH ×2 (08:51→20:58)
[2018-03-26] MEDS: DILTIAZEM HCL CD 240 MG PO SCH (08:52)
--- NOTE | 2018-03-26 09:42 | NUR ---
PT CURRENTLY HAS NO IV ACCESS, MULTIPLE ATTEMPTS TRIED BY BATTERY CONTAINER TESTER AND DAY SHIFT NURSE, NIGHT NURSE MADE HOSPITALIST AWARE, WILL REQUEST MIDLINE AND WILL MONITOR ACCORDINGLY
--- NOTE | 2018-03-26 11:25 | NUR ---
PATIENT REFUSED LAB DRAW AGAIN, POSSIBLE PICC LINE INSERTION LATER TODAY LAB WILL TRY AGAIN AT THAT TIME
--- NOTE | 2018-03-26 13:30 | NUR ---
NETTIE 18 GAUGE MIDLINE WAS PLACED AT THIS TIME
--- NOTE | 2018-03-26 14:20 | NUR ---
LAB WAS NOTIFIED OF MIDLINE PLACEMENT SO THEY COULD COME DRAW LABS
[2018-03-26 15:58] VITALS: BP 129/74
--- NOTE | 2018-03-26 16:56 | NUR ---
BLOOD FOR LABS WERE DRAWN AT THIS TIME
[2018-03-26 18:02] LABS: BASOPHILS % (AUTO) 0.4 % (0.0-2.0); EOSINOPHILS % (AUTO) 3.3 % (0.0-6.0); HEMATOCRIT 31 % (39-51); HEMOGLOBIN 10.6 g/dL (13.5-17.5); LYMPHOCYTES # (AUTO) 1.5 /CMM (0.8-4.8); LYMPHOCYTES % (AUTO) 21.4 % (20.0-44.0); MEAN CORPUSCULAR HGB CONC 35 g/dl (31.0-36.0); MEAN CORPUSCULAR VOLUME 76 fL (80-96); MONOCYTES # (AUTO) 0.8 /CMM (0.1-1.30); MONOCYTES % (AUTO) 10.6 % (2.0-12.0); NEUTROPHILS # (AUTO) 4.6 /CMM (1.8-8.9); NEUTROPHILS % (AUTO) 64.3 % (43.0-81.0); PLATELET COUNT (AUTO) 278 /CMM (150-450); RED BLOOD CELL COUNT(AUTO) 4.03 MIL/uL (4.5-6.0); WHITE BLOOD COUNT (AUTO) 7.1 K/uL (4.3-11.0)
[2018-03-26 18:17] LABS: BILIRUBIN,TOTAL 0.1 mg/dL (0.2-1.0); CALCIUM, SERUM 7.8 mg/dL (8.5-10.1); CREATININE 1.4 mg/dL (0.6-1.3); MAGNESIUM 1.8 mg/dL (1.8-2.4); PHOSPHORUS 3.2 mg/dL (2.5-4.9); POTASSIUM 4.1 mmol/L (3.5-5.1); TOTAL PROTEIN, SERUM 5.5 g/dL (6.4-8.2)
[2018-03-26 18:22] LABS: ALBUMIN 1.2 g/dL (3.4-5.0)
--- NOTE | 2018-03-26 18:30 | NUR ---
PAZ TIMBER ESTIMATOR MADE AWARE OF PT LOW ALBUMIN LEVEL
--- NOTE | 2018-03-26 18:41 | NUR ---
RN CLOSING NOTES PT IN BED AT LOWEST AND LOCKED POSITION WITH SIDE RAILS UP X2, A/O X3, NO PAIN OR DISTRESS AT THIS TIME, BREATHING EVEN AND UNLABORED ON RA, PAZ WASHING TUB OPERATOR INFORMED OF LOW ALBUMIN LEVEL, NETTIE [address] AND INTACT, SAFETY PRECAUTIONS IN PLACE, CALL LIGHT WITHIN REACH, ALL NEEDS ATTENDED TO, WILL ENDORSE TO ONCOMING FILM NUMBERER NURSE FOR CONTINUITY OF CARE
--- NOTE | 2018-03-26 19:10 | NUR ---
RN OPENING NOTES PT SLEEPING IN BED, AROUSES EASILY TO NAME. NO COMPLAINTS OF PAIN, SOB OR DISTRESS AT THIS TIME. PT HAS A RIGHT UPPER ARM MIDLINE #18. SAFETY PRECAUTIONS IN PLACE, BED IN LOWEST LOCKED POSITION, X2 SIDE RAILS UP AND CALL LIGHT WITHIN REACH. WILL CONTINUE TO MONITOR.
--- NOTE | 2018-03-26 19:43 | NUR ---
RN NOTES PATIENT REFUSED 1999 VITAL SIGNS.
[2018-03-26] MEDS: INSULIN GLARGINE, 100 UNIT/ML CARTRIDGE SQ SCH (21:15)
--- NOTE | 2018-03-26 21:16 | NUR ---
RN NOTES PT REFUSED ACCU-CHECK, LANTUS, AND HEPARIN. EXPLAINED TO THE PATIENT THE IMPORTANCE OF MEDICATION COMPLIANCE. PATIENT STATED "LEAVE ME ALONE, LET ME SLEEP". CONFIRMED WITH PATIENT THAT HE WAS REFUSING CARE. PATIENT STATED "YES, AND LEAVE ME ALONE". WILL CONTINUE TO MONITOR.
[2018-03-27] MEDS: oxyCODONE/APAP (5/325 MG) 1 UDTAB TABLET PO PRN ×3 (00:39→21:08)
[2018-03-27] MEDS: PIPERACILLIN /TAZOBACTAM 2.25 G in IV D5W 50 ML IV SCH ×4 (02:16→20:51)
[2018-03-27] MEDS: BLOOD SUGAR DIAGNOSTIC 1 EACH STRIP VI SCH ×4 (06:36→21:09)
[2018-03-27] MEDS: INSULIN REGULAR, HUMAN 100 UNIT/ML 3 ML VIAL SQ PRN ×2 (06:37→11:41)
--- NOTE | 2018-03-27 06:58 | NUR ---
RN OPENING NOTES PT SLEEPING IN BED, AROUSES EASILY TO NAME. ALL PATIENT NEEDS MET OVERNIGHT.. PT HAS A RIGHT UPPER ARM MIDLINE #18. WILL ENDORSE TO DAY SHIFT THAT PATIENT REFUSED HEPARIN, AND 2200 ACCUC[address]K. SAFETY PRECAUTIONS IN PLACE, BED IN LOWEST LOCKED POSITION, X2 SIDE RAILS UP AND CALL LIGHT WITHIN REACH. WILL ENDORSE TO DAY SHIFT NURSE FOR CONTINUITY OF CARE.
--- NOTE | 2018-03-27 07:00 | NUR ---
RN OPENING NOTES PT SLEEPING IN BED, AROUSES EASILY TO NAME.IV LINE RIGHT UPPER ARM MIDLINE #18. PT NON COMPLIANT . SAFETY PRECAUTIONS IN PLACE, BED IN LOWEST LOCKED POSITION, X2 SIDE RAILS UP AND CALL LIGHT WITHIN REACH.WILL CONTINUE TO MONITOR
[2018-03-27 07:02] LABS: BASOPHILS % (AUTO) 0.5 % (0.0-2.0); EOSINOPHILS % (AUTO) 4.4 % (0.0-6.0); HEMATOCRIT 32 % (39-51); HEMOGLOBIN 11.1 g/dL (13.5-17.5); LYMPHOCYTES # (AUTO) 1.7 /CMM (0.8-4.8); LYMPHOCYTES % (AUTO) 26.4 % (20.0-44.0); MEAN CORPUSCULAR HGB CONC 34 g/dl (31.0-36.0); MEAN CORPUSCULAR VOLUME 77 fL (80-96); MONOCYTES # (AUTO) 0.7 /CMM (0.1-1.30); MONOCYTES % (AUTO) 10.5 % (2.0-12.0); NEUTROPHILS # (AUTO) 3.8 /CMM (1.8-8.9); NEUTROPHILS % (AUTO) 58.2 % (43.0-81.0); PLATELET COUNT (AUTO) 277 /CMM (150-450); RED BLOOD CELL COUNT(AUTO) 4.23 MIL/uL (4.5-6.0); WHITE BLOOD COUNT (AUTO) 6.6 K/uL (4.3-11.0)
[2018-03-27 07:16] LABS: BILIRUBIN,TOTAL 0.2 mg/dL (0.2-1.0); CALCIUM, SERUM 7.9 mg/dL (8.5-10.1); CREATININE 1.4 mg/dL (0.6-1.3); MAGNESIUM 1.9 mg/dL (1.8-2.4); PHOSPHORUS 3.5 mg/dL (2.5-4.9); POTASSIUM 4.2 mmol/L (3.5-5.1); TOTAL PROTEIN, SERUM 5.8 g/dL (6.4-8.2)
[2018-03-27 07:19] LABS: THYROID STIMULATING HORMONE 9.672 uIU/mL (0.358-3.74)
[2018-03-27 07:21] LABS: ALBUMIN 1.3 g/dL (3.4-5.0)
[2018-03-27 07:38] LABS: EOSINOPHILS % (MANUAL) 10 % (0-4); LYMPHOCYTES % (MANUAL) 21 % (16-48); MONOCYTES % (MANUAL) 11 % (0-11.0); NEUTROPHILS % (MANUAL) 58 (42-76)
[2018-03-27 08:00] VITALS: BP_SYST 151; BP_SYST 156; BP_DIAS 95
--- NOTE | 2018-03-27 09:00 | NUR ---
WOUND DRESSING CHANGED.
[2018-03-27] MEDS: LINAGLIPTIN 5 MG TABLET PO SCH (09:12)
[2018-03-27] MEDS: DILTIAZEM HCL CD 240 MG PO SCH (09:12)
[2018-03-27] MEDS: PANTOPRAZOLE 40 MG TABLET.DR PO SCH (09:13)
[2018-03-27] MEDS: HEPARIN SODIUM, PORCINE 5000 UNITS/1 ML VIAL SQ SCH ×2 (09:14→20:49)
[2018-03-27] MEDS: LACTOBACILLUS RHAMNOSUS GG 1 EACH CAP.SPRINK PO SCH ×2 (09:15→17:56)
--- NOTE | 2018-03-27 10:44 | NUR ---
PAIN PRN PERCOCET GIVEN
--- NOTE | 2018-03-27 11:19 | NUR ---
PT WANTS TO TAKE A SHOWER. SPOKE WITH CLAY LINDSAY. PT CAN TAKE A SHOWER BUT NEED TO COVER R LEG.
--- NOTE | 2018-03-27 11:50 | NUR ---
PT REMOVED WOUND DRESSING. NEW DRESSING APPLIED
--- NOTE | 2018-03-27 11:58 | NUR ---
PT BS LEVEL IS 278 . INSULIN 9 UNITS GIVEN PER SLIDING SCALE
[2018-03-27 12:11] LABS: *SPE A/G RATIO 0.5 (0.7-1.7); *SPE ALBUMIN 1.6 g/dL (2.9-4.4); *SPE ALPHA-1-GLOBULIN 0.3 g/dL (0.0-0.4); *SPE ALPHA-2-GLOBULIN 1.2 g/dL (0.4-1.0); *SPE GLOBULIN, TOTAL 3.3 g/dL (2.2-3.9); *SPE M-SPIKE Not Observed g/dL (Not Observed); *SPEGAMMA GLOBULIN 0.7 g/dL (0.4-1.8)
[2018-03-27 14:15] LABS: PTH, INTACT 55 pg/mL (15-65)
[2018-03-27 16:00] VITALS: BP 119/66
--- NOTE | 2018-03-27 16:57 | NUR ---
Social service received consult from Erik Lim for homelessness. Sw'er forwarded consult to be processed by case management social worker Mary Anne.
--- NOTE | 2018-03-27 17:10 | NUR ---
PT BS IS 234, REFUSED INSULIN . EDUCATION PROVIDED.
[2018-03-27] MEDS: VANCOMYCIN 1.5 GM in IV D5W 500 ML IV SCH (18:03)
[2018-03-27] MEDS: FERROUS SULFATE (325 MG) 325 MG/TAB TABLET PO SCH (18:15)
--- NOTE | 2018-03-27 18:50 | NUR ---
MS RN CLOSING NOTES PT IN BED, RESTING.IV LINE RIGHT UPPER ARM MIDLINE #18 VANCO RUNNING AT 250ML/HR. PT NON COMPLIANT, NEEDS EDUCATION AND REINFORCEMENT. WOUND DRESSING INTACT AND CLEAN.SAFETY PRECAUTIONS IN PLACE, BED IN LOWEST LOCKED POSITION, X2 SIDE RAILS UP AND CALL LIGHT WITHIN REACH.WILL ENDORSE TO NEXT SHIFT.
--- NOTE | 2018-03-27 19:05 | NUR ---
RN MS OPENING NOTES RECEIVED PATIENT IN BED AWAKE ALERT AND ORIENTED X4, ABLE TO MAKE NEEDS KNOWN, RESPIRATIONS EVEN AND UNLABORED, NETTIE MIDLINE #18 G INTACT AND PATENT, NO REDNESS, NO INFILTRATION PRESENT, DRESSING IS CLEAN, DRY AND INTACT, ORIENTED TO STAFF AND CALL LIGHT, SAFETY PRECAUTIONS IN PLACE, FLUIDS AND SNACKS OFFERED, SAFETY PRECAUTIONS IN PLACE, ALL NEEDS ATTENDED AT THIS TIME, WILL CONTINUE TO MONITOR.
--- NOTE | 2018-03-27 20:00 | NUR ---
RN MS NOTES PATIENT REFUSED VITAL SIGNS EXPLAINED RISK AND BENEFIT, PATIENT IS VERBALLY AGGRESSIVE STATING " YOU GUYS ALWAYS TRYING TO TAKE MY BLOOD PRESSURE THEY TOOK IT LIKE 6 TIMES TODAY" EDUCATED PATIENT PATIENT ALSO MENTIONED AND STATED "AND IF IM ASLEEP DO NOT WAKE ME THE F UP!"
[2018-03-27] MEDS: INSULIN GLARGINE, 100 UNIT/ML CARTRIDGE SQ SCH (21:00)
[2018-03-27] MEDS: *INSULIN REGULAR(HUMULIN R)HUM 100 UNIT/ML VIAL SQ PRN (21:01)
--- NOTE | 2018-03-27 21:08 | NUR ---
RN MS NOTES PATIENT COMPLAINT OF PAIN 9/10 TO RIGHT LEG REQUESTING FOR PAIN MEDICATION PERCOCET PRN GIVEN ORDERED. WILL CONTINUE TO MONITOR.
[2018-03-28] MEDS: PIPERACILLIN /TAZOBACTAM 2.25 G in IV D5W 50 ML IV SCH ×4 (01:32→20:08)
--- NOTE | 2018-03-28 05:37 | NUR ---
RN MS NOTES DRESSING DONE TO TOE ORDERED. MADE PATIENT AWARE OF ORDER TO COLLECT STOOL SAMPLE. PATIENT LAUGHED STATED " NO IM STRAIGHT ON THAT".
[2018-03-28 06:06] LABS: BASOPHILS % (AUTO) 0.4 % (0.0-2.0); HEMATOCRIT 33 % (39-51); HEMOGLOBIN 10.9 g/dL (13.5-17.5); LYMPHOCYTES # (AUTO) 1.4 /CMM (0.8-4.8); LYMPHOCYTES % (AUTO) 22.2 % (20.0-44.0); MEAN CORPUSCULAR HGB CONC 34 g/dl (31.0-36.0); MEAN CORPUSCULAR VOLUME 77 fL (80-96); MONOCYTES # (AUTO) 0.6 /CMM (0.1-1.30); MONOCYTES % (AUTO) 9.5 % (2.0-12.0); NEUTROPHILS # (AUTO) 4.2 /CMM (1.8-8.9); NEUTROPHILS % (AUTO) 63.9 % (43.0-81.0); PLATELET COUNT (AUTO) 303 /CMM (150-450); WHITE BLOOD COUNT (AUTO) 6.5 K/uL (4.3-11.0)
[2018-03-28 06:21] LABS: POTASSIUM 4.4 mmol/L (3.5-5.1)
[2018-03-28 06:22] LABS: CALCIUM, SERUM 8.2 mg/dL (8.5-10.1); CREATININE 1.6 mg/dL (0.6-1.3); MAGNESIUM 1.9 mg/dL (1.8-2.4)
--- NOTE | 2018-03-28 06:35 | NUR ---
RN MS CLOSING NOTES PATIENT IN BED, SLEEPING BUT EASILY AWAKENS,RESPIRATIONS EVEN AND UNLABORED WITH EQUAL RISE AND FALL OF CHEST, DENIES ANY PAIN OR DISCOMFORT AT THIS TIME, NETTIE MIDLINE #18 G INTACT AND PATENT, NO REDNESS, NO INFILTRATION PRESENT,DRESSING REMAINS DRY AND INTACT, PATIENT REQUESTING TO HAVE ACCUCHECK DONE AT A LATER TIME, FLUIDS AND TOILETING OFFERED, ALL NEEDS ATTENDED AT THIS TIME, MEDICATIONS GIVEN ORDERED. CALL LIGHT KEPT WITHIN REACH,ALL NEEDS ATTENDED REMAINS COMFORTABLE WILL ENDORSE TO NEXT SHIFT.
[2018-03-28] MEDS: BLOOD SUGAR DIAGNOSTIC 1 EACH STRIP VI SCH ×4 (07:30→21:41)
[2018-03-28] MEDS: PANTOPRAZOLE 40 MG TABLET.DR PO SCH (07:30)
--- NOTE | 2018-03-28 07:30 | NUR ---
MSRN. PT RECEIVED AND REQUESTING MORE SLEEP, DENIES NEEDS.
[2018-03-28 08:00] VITALS: BP 167/90
--- NOTE | 2018-03-28 08:30 | NUR ---
MSRN. PT A&0X3 TOLERATING ROOM AIR AND REPORTING MINOR TOE PAIN, WILL ADMIN PRN. PT WITH R UA MIDLINE INTACT AND OPERATIONAL. PT REFUSED AM BGL MONITORING DESPITE EDUCATION. PT WITH DRESSING AT R FOOT CLEAN DRY AND INTACT. PT DENIES NEEDS AT THIS TIME. PT BED IN LOWEST LOCKED POSITION WITH HANDRAILSX2 AND CALL CHRIS WITHIN REACH. PT BRIEFED ON POC AND IS WITHOUT CONCERN OR COMPLAINT AT THIS TIME.
[2018-03-28] MEDS: DILTIAZEM HCL CD 240 MG PO SCH (09:05)
[2018-03-28] MEDS: LINAGLIPTIN 5 MG TABLET PO SCH (09:05)
[2018-03-28] MEDS: FERROUS SULFATE (325 MG) 325 MG/TAB TABLET PO SCH ×2 (09:05→16:54)
[2018-03-28] MEDS: HEPARIN SODIUM, PORCINE 5000 UNITS/1 ML VIAL SQ SCH ×2 (09:06→21:00)
[2018-03-28] MEDS: LACTOBACILLUS RHAMNOSUS GG 1 EACH CAP.SPRINK PO SCH ×2 (09:06→16:55)
--- NOTE | 2018-03-28 10:35 | NUR ---
Social service consult requested by NINO Lim for homelessness. Pt. is a 37 year old male who was admitted to [facility] for acute kidney injury. RUIZ met with pt. bedside. Pt. is alert and oriented x 4. Pt. was sitting upright on his bed with his feet on the floor. Pt. appears hostile and defensive when answering questions. Pt. was recently diagnosed with Lymphoma. SW offered pt. emotional support, however, pt. was not receptive. Pt. denies being homeless and states he resides at [address] [place] [address], [address] [place] [address]. RUIZ inquired with pt. if he lives alone or with someone. Pt. angrily stated, " It's not of your business." SW is unsure if pt. is giving honest information. Pt. denies alcohol or drug use and stated, " do I look like someone who does drugs." RUIZ informed pt. she can come back later to speak with him, however pt. stated, " You ask the questions now." Pt. smokes cigarettes occasionally. RUIZ offered pt. emotional support and cancer resources, however pt. declined. No other social service needs are requested at this time. SW is available if needed. RUIZ updated ITALO Ramirez and pillowcase folder Sybil Mendosa with the aforementioned information.
[2018-03-28] MEDS: oxyCODONE/APAP (5/325 MG) 1 UDTAB TABLET PO PRN (11:03)
--- NOTE | 2018-03-28 12:00 | NUR ---
MSNR. PT REMOVED ALL WOUND DRESSINGS, WOUND CARE RE DONE PER RX.
[2018-03-28] MEDS: INSULIN REGULAR, HUMAN 100 UNIT/ML 3 ML VIAL SQ PRN ×2 (12:01→17:19)
[2018-03-28] MEDS: VANCOMYCIN 1.5 GM in IV D5W 500 ML IV SCH ×2 (13:18→14:30)
[2018-03-28 16:00] VITALS: BP 165/93
--- NOTE | 2018-03-28 18:28 | NUR ---
MSRN. PT A&0X3 TOLERATING ROOM AIR AND CHATTING WITH ROOM MATE. PT REPORTING MINOR TOE PAIN. PT WITH R UA MIDLINE INTACT AND SL. PT COMPLAINT WITH INSULIN AND BGL MONITORING. PT RECEPTIVE TO EDUCATION R/T BIOPSY AND POC. PT WITH DRESSING AT R FOOT CLEAN DRY AND INTACT. PT DENIES NEEDS AT THIS TIME. PT BED IN LOWEST LOCKED POSITION WITH HANDRAILSX2 AND CALL CHRIS WITHIN REACH. ALL DAY NURSE DUTIES ATTENDED TO AND PT IS WITHOUT CONCERN OR COMPLAINT AT THIS TIME. WILL ENDORSE TO NIGHT NURSE AT BEDSIDE FOR KANDY.
--- NOTE | 2018-03-28 19:44 | NUR ---
RN MS OPENING NOTES RECEIVED PT IN BED, AWAKE, ALERT ORIENTEDX4. BREATHING EVEN AND UNLABORED ON ROOM AIR AND TOLERATING. NO COMPLAINT OF PAIN OR DISCOMFORT AT THIS TIME. R UA MIDLINE, PATENT AND FLUSHING. CONTINENT AND WITH BRP. DRESSING ON R 2ND TOE CLEAN AND INTACT. BED IN LOWEST LOCKED POSITION, CALL LIGHT WITHIN REACH AT ALL TIMES WILL; CONTINUE TO MONITOR.
[2018-03-28 20:00] VITALS: BP 160/85
--- NOTE | 2018-03-28 22:00 | NUR ---
refused 2200 accu check, administered lantus 35 units
[2018-03-28] MEDS: INSULIN GLARGINE, 100 UNIT/ML CARTRIDGE SQ SCH (22:08)
[2018-03-29] MEDS: oxyCODONE/APAP (5/325 MG) 1 UDTAB TABLET PO PRN ×2 (00:02→11:47)
[2018-03-29] MEDS: PIPERACILLIN /TAZOBACTAM 2.25 G in IV D5W 50 ML IV SCH ×3 (01:53→15:26)
[2018-03-29] MEDS: VANCOMYCIN 1.5 GM in IV D5W 500 ML IV SCH (05:29)
[2018-03-29] MEDS: *INSULIN REGULAR(HUMULIN R)HUM 100 UNIT/ML VIAL SQ PRN (06:10)
--- NOTE | 2018-03-29 06:15 | NUR ---
RN MS CLOSING NOTES PT REMAINS IN BED, SLEEPING, EASILY AROUSED TO NAME CALL. BREATHING EVEN AND UNLABORED ON ROOM AIR, NO SOB, COUGH OR CONGESTION. NO COMPLAINT OF PAIN OR DISCOMFORT AT THE TIME. BS- 191 MID LINE ON THE R UA PATENT AND FLUSHING. AM LABS DRAWN, HEPARIN DOSE HELD PER PROTOCOL FOR PROCEDURE. BED IN LOWEST LOCKED POSITION CALL LIGHT WITHIN REACH AT ALL TIMES. WILL ENDORSE TO DAY NURSE FOR KANDY
[2018-03-29 06:28] LABS: BASOPHILS % (AUTO) 0.5 % (0.0-2.0); EOSINOPHILS % (AUTO) 4.4 % (0.0-6.0); HEMATOCRIT 34 % (39-51); HEMOGLOBIN 11.6 g/dL (13.5-17.5); LYMPHOCYTES # (AUTO) 1.6 /CMM (0.8-4.8); LYMPHOCYTES % (AUTO) 19.3 % (20.0-44.0); MEAN CORPUSCULAR HGB CONC 34 g/dl (31.0-36.0); MEAN CORPUSCULAR VOLUME 76 fL (80-96); MONOCYTES # (AUTO) 0.8 /CMM (0.1-1.30); MONOCYTES % (AUTO) 9.4 % (2.0-12.0); NEUTROPHILS # (AUTO) 5.5 /CMM (1.8-8.9); NEUTROPHILS % (AUTO) 66.4 % (43.0-81.0); PLATELET COUNT (AUTO) 357 /CMM (150-450); RED BLOOD CELL COUNT(AUTO) 4.51 MIL/uL (4.5-6.0); WHITE BLOOD COUNT (AUTO) 8.3 K/uL (4.3-11.0)
[2018-03-29 06:44] LABS: CALCIUM, SERUM 8.4 mg/dL (8.5-10.1); CREATININE 1.4 mg/dL (0.6-1.3); POTASSIUM 4.8 mmol/L (3.5-5.1)
[2018-03-29 08:07] VITALS: BP 161/93
[2018-03-29] MEDS: HEPARIN SODIUM, PORCINE 5000 UNITS/1 ML VIAL SQ SCH (08:14)
[2018-03-29] MEDS: LACTOBACILLUS RHAMNOSUS GG 1 EACH CAP.SPRINK PO SCH (08:22)
[2018-03-29] MEDS: FERROUS SULFATE (325 MG) 325 MG/TAB TABLET PO SCH (08:22)
[2018-03-29] MEDS: BLOOD SUGAR DIAGNOSTIC 1 EACH STRIP VI SCH ×2 (08:22→11:46)
[2018-03-29] MEDS: PANTOPRAZOLE 40 MG TABLET.DR PO SCH (08:22)
[2018-03-29] MEDS: DILTIAZEM HCL CD 240 MG PO SCH (08:22)
[2018-03-29] MEDS: LINAGLIPTIN 5 MG TABLET PO SCH (08:23)
[2018-03-29] MEDS: INSULIN REGULAR, HUMAN 100 UNIT/ML 3 ML VIAL SQ PRN (08:36)
[2018-03-29] MEDS ORDERED: LORAZEPAM 1 MG TABLET PO PRN (11:30)
--- NOTE | 2018-03-29 11:42 | NUR ---
MSRN. PT A&0X3 TOLERATING ROOM AIR AND DENIES PAIN AT THIS TIME. PT WITH R UA MIDLINE INTACT AND OPERATIONAL. PT WITH DRESSING AT R FOOT CLEAN DRY AND INTACT. PT DENIES NEEDS AT THIS TIME. PT BED IN LOWEST LOCKED POSITION WITH HANDRAILSX2 AND CALL CHRIS WITHIN REACH. PT BRIEFED ON POC AND IS WITHOUT CONCERN OR COMPLAINT AT THIS TIME.
--- NOTE | 2018-03-29 11:45 | NUR ---
CONFIRMED PRE-MED TIME WITH ULTRA SOUND, WILL ADMIN AROUND 12.
[2018-03-29] MEDS ORDERED: Insulin Glargine,Hum SQ (12:31)
[2018-03-29] MEDS ORDERED: CLIN300C11 PO (12:31)
[2018-03-29] MEDS ORDERED: LINA5TAB PO (12:31)
[2018-03-29] MEDS ORDERED: DILT240C88 PO (12:31)
[2018-03-29] MEDS ORDERED: FERR325T28 PO (12:31)
--- NOTE | 2018-03-29 14:00 | NUR ---
MSRN. PT REFUSED INSULIN COVERAGE R/T TO PROCEDURE.
[2018-03-29 16:00] VITALS: BP 165/105
--- NOTE | 2018-03-29 17:00 | NUR ---
MSRN. PT PREPARED FOR DC PER MD SALVADOR. PT TOLERATING ROOM AIR AND DENIES PAIN. PT MIDLINE REMOVED, COMPLETE, PRESSURE BANDAGE APPLIED AND NAD. PT WOUND CARE CLEAN AND INTACT. PT REFUSED RE-DOING DRESSING FOR D/C PHOTO, OTHER AREAS UPDATED. PT AND FAMILY BRIEFED ON PT HEALTH STATUS, SCRIPTS, EDUCATION, PROVIDED FOLLOW UP NUMBER AND DETAILS, PT EDUCATED EXTENSIVELY ON THE IMPORTANCE OF DIABETIC COMPLIANCE AND LIFESTYLE MODIFICATION, PT AND FAMILY VERBALIZING UNDERSTANDING, RESOURCES AND INTENT TO COMPLY WITH D/C POC. PT WITH ALL BELONGINGS, PROVIDED WOUND CARE SUPPLIES X1 DAY. PT LEFT AMB WITH FAMILY [facility] TRANSPORT. ALL DAY NURSE DUTIES ATTENDED TO AND PT LEFT WITHOUT CONCERN OR COMPLAINT AND GRATEFUL FOR CARE.
== END 2018-03-29 17:30 | disposition home health service (06) | DRG 364 ==
LOC: ER 03:07 → MED 05:11
PROVIDERS: ADMIT Hospitalist; ATTEND Student in an Organized Health Care Education/Training Program
PROC: 0JBQ0ZZ Excision of Right Foot Subcutaneous Tissue and Fascia, Open Approach (ICD-10-PCS; principal; 2018-03-24)
PROC: 05H533Z Insertion of Infusion Device into Right Subclavian Vein, Percutaneous Approach (ICD-10-PCS; 2018-03-26)
PROC: 07BH3ZX Excision of Right Inguinal Lymphatic, Percutaneous Approach, Diagnostic (ICD-10-PCS; 2018-03-29)
DX: L03.115 Cellulitis of right lower limb (principal); N17.0 Acute kidney failure with tubular necrosis; E43 Unspecified severe protein-calorie malnutrition; J90 Pleural effusion, not elsewhere classified; D68.59 Other primary thrombophilia; E11.22 Type 2 diabetes mellitus with diabetic chronic kidney disease; E11.42 Type 2 diabetes mellitus with diabetic polyneuropathy; E11.621 Type 2 diabetes mellitus with foot ulcer; E11.65 Type 2 diabetes mellitus with hyperglycemia; E87.1 Hypo-osmolality and hyponatremia; E78.5 Hyperlipidemia, unspecified; F17.210 Nicotine dependence, cigarettes, uncomplicated; D50.9 Iron deficiency anemia, unspecified; E66.01 Morbid (severe) obesity due to excess calories; Z68.41 Body mass index [BMI] 40.0-44.9, adult; L97.518 Non-pressure chronic ulcer of other part of right foot with other specified severity; E86.9 Volume depletion, unspecified; N13.30 Unspecified hydronephrosis; E78.1 Pure hyperglyceridemia; R91.1 Solitary pulmonary nodule; R16.2 Hepatomegaly with splenomegaly, not elsewhere classified; R59.1 Generalized enlarged lymph nodes; T39.395A Adverse effect of other nonsteroidal anti-inflammatory drugs [NSAID], initial encounter; T46.4X5A Adverse effect of angiotensin-converting-enzyme inhibitors, initial encounter; Y92.009 Unspecified place in unspecified non-institutional (private) residence as the place of occurrence of the external cause; N18.9 Chronic kidney disease, unspecified; I12.9 Hypertensive chronic kidney disease with stage 1 through stage 4 chronic kidney disease, or unspecified chronic kidney disease; K21.9 Gastro-esophageal reflux disease without esophagitis; Z79.4 Long term (current) use of insulin
CPT/HCPCS: 36415; 36569; 71250-TC; 73630-TC; 76770-TC; 76942-TC; 80048-TC; 80053-TC; 80061-TC; 80202-TC; 81000-TC; 82105; 82550-TC; 82570-TC; 82728-TC; 82962-TC; 83540-TC; 83615-TC; 83735-TC; 83935-TC; 83970; 84100-TC; 84155; 84155-TC; 84165; 84300-TC; 84439-TC; 84443-TC; 84702-TC; 85025-TC; 85610-TC; 85730-TC; 87070-TC; 87081-TC; 87086-TC; 88305-TC; 88313-TC; 88342; 93970-TC; A4606; A6402; A6403; C1751; G0378; J1644; J1815; J2270; J2543; J3370; J7030; J7060; Z7610

== ENCOUNTER 2018-05-08 08:26 | Inpatient (IN) | payer MEDICAID ==
[~2018-05-08] VITALS: Ht 182.9 cm; Wt 148.8 kg
[~2018-05-08 08:26] MED LIST changes: +CLIN300C11 PO; +DILT240C88 PO; +FERR325T28 PO; +Insulin Glargine,Hum SQ; +LINA5TAB PO
--- NOTE | 2018-05-08 08:47 | NUR ---
PT BIBSELF C/O R FOOT WOUND, BILATERAL LE EDEMA +3, SOB. PT AAOX4, RESPIRATIONS EVEN AND UNLABORED, NO SOB, AND NOTED, VSS, PENDING ER MD WU
[2018-05-08] MEDS ORDERED: CLINDAMYCIN 600 MG in IV D5W 100 ML IV ONE (10:00)
[2018-05-08] MEDS ORDERED: hydrALAZINE HCL IV 20 MG VIAL IV ONE (10:00)
[2018-05-08] MEDS ORDERED: HYDROMORPHONE 1 MG/1 ML DISP.SYRIN IV ONE (10:00)
[2018-05-08] MEDS ORDERED: FUROSEMIDE 40 MG/4 ML VIAL IV ONE (10:00)
[2018-05-08] MEDS ORDERED: PIPERACILLIN /TAZOBACTAM 3.375 G in IV D5W 50 ML IV ONE (10:00)
[2018-05-08 10:04] LABS: BASOPHILS % (AUTO) 0.5 % (0.0-2.0); EOSINOPHILS % (AUTO) 4.8 % (0.0-6.0); HEMATOCRIT 35 % (39-51); HEMOGLOBIN 11.6 g/dL (13.5-17.5); LYMPHOCYTES # (AUTO) 1.7 /CMM (0.8-4.8); LYMPHOCYTES % (AUTO) 21.4 % (20.0-44.0); MEAN CORPUSCULAR HGB CONC 33 g/dl (31.0-36.0); MEAN CORPUSCULAR VOLUME 76 fL (80-96); MONOCYTES # (AUTO) 0.6 /CMM (0.1-1.30); MONOCYTES % (AUTO) 8.1 % (2.0-12.0); NEUTROPHILS # (AUTO) 5.2 /CMM (1.8-8.9); NEUTROPHILS % (AUTO) 65.2 % (43.0-81.0); PLATELET COUNT (AUTO) 339 /CMM (150-450); RED BLOOD CELL COUNT(AUTO) 4.63 MIL/uL (4.5-6.0); WHITE BLOOD COUNT (AUTO) 7.9 K/uL (4.3-11.0)
[2018-05-08] MEDS ORDERED: FUROSEMIDE 40 MG/4 ML VIAL ONE (10:11)
[2018-05-08] MEDS ORDERED: hydrALAZINE HCL IV 20 MG VIAL ONE (10:11)
[2018-05-08] MEDS ORDERED: HYDROMORPHONE INJ 2 MG/ML DISP.SYRIN ONE (10:12)
--- NOTE | 2018-05-08 10:17 | NUR ---
BLOOD DRAWN FROM [facility], SPECIMEN HANDED TO HOME HEALTH OUTREACH COORDINATOR, NO URINE ORDERS AT THIS TIME
[2018-05-08 10:27] LABS: BILIRUBIN,TOTAL 0.1 mg/dL (0.2-1.0); CALCIUM, SERUM 8.5 mg/dL (8.5-10.1); CREATININE 1.7 mg/dL (0.6-1.3); POTASSIUM 4.3 mmol/L (3.5-5.1); TOTAL PROTEIN, SERUM 6.5 g/dL (6.4-8.2)
[2018-05-08 10:29] LABS: ALBUMIN 1.4 g/dL (3.4-5.0)
[2018-05-08] MEDS ORDERED: INSULIN REGULAR, HUMAN 100 UNIT/ML 10 ML VIAL IV ONE (11:00)
[2018-05-08] MEDS ORDERED: INSULIN REGULAR, HUMAN 100 UNIT/ML 10 ML VIAL ONE (11:02)
[2018-05-08] MEDS ORDERED: FERR325T23 PO (11:52)
[2018-05-08] MEDS ORDERED: INSU100V7 SQ (11:52)
[2018-05-08] MEDS ORDERED: DILT240C88 PO (11:52)
[2018-05-08] MEDS ORDERED: ONDA4TAB5 PO (11:52)
[2018-05-08] MEDS ORDERED: OXYC-133 PO (11:52)
[2018-05-08] MEDS ORDERED: LINA5TAB PO (11:52)
[2018-05-08] MEDS ORDERED: ONDANSETRON HCL/PF 4 MG/2 ML VIAL IVP PRN ×2 (13:30→14:00)
[2018-05-08] MEDS ORDERED: DEXTROSE 50%-WATER 50 ML DISP.SYRIN IV PRN ×2 (13:30→14:00)
[2018-05-08] MEDS ORDERED: MAG HYDROX/AL HYDROX/SIMETH 30 ML UDC PO PRN ×2 (13:30→14:00)
[2018-05-08] MEDS ORDERED: ZOLPIDEM TARTRATE 5 MG TABLET PO PRN ×2 (13:30→14:00)
[2018-05-08] MEDS ORDERED: Z GUARD REMEDY 2 OZ OINT TP PRN ×2 (13:30→14:00)
[2018-05-08] MEDS ORDERED: MAGNESIUM HYDROXIDE 30 ML UDC PO PRN ×2 (13:30→14:00)
[2018-05-08] MEDS ORDERED: ACETAMINOPHEN 325 MG TABLET PO PRN ×2 (13:30→14:00)
[2018-05-08] MEDS ORDERED: INSULIN REGULAR, HUMAN 100 UNIT/ML 3 ML VIAL SQ PRN (13:30)
[2018-05-08] MEDS ORDERED: *INSULIN REGULAR(HUMULIN R)HUM 100 UNIT/ML VIAL SQ PRN ×2 (13:30→14:00)
[2018-05-08] MEDS ORDERED: FUROSEMIDE 40 MG/4 ML VIAL IV SCH (13:30)
[2018-05-08] MEDS ORDERED: HYDROCODONE/APAP 5/325MG 1 EACH TABLET PO PRN ×2 (13:30→14:00)
--- NOTE | 2018-05-08 13:45 | NUR ---
REPORT GIVEN TO MARIBEL SMYTH FOR KANDY, ADMISSION TO [facility]-1 MS
--- NOTE | 2018-05-08 14:10 | NUR ---
MS PUBLIC HEALTH REPRESENTATIVE NOTE RECEIVED PT FROM ER VIA [facility] WITH DX OF BILATERAL LOWER EXTREMITY CELLULITIS. ADMITTING IS DR. ADKINS. PT IS ALERT AND ORIENTED X4, PT DENIES N/V, CHEST PAIN, SOB. BREATHING IS EVEN AND UNLABORED ON ROOM AIR. L AC #20G IV IS PATENT, CLEAN, DRY AND INACT. PT RATES PAIN 4/10 AT THE BLE AND TOLERABLE AT THIS TIME. ALL BELONGINGS ACCOUNTED FOR AND BELONGINGS LIST SIGNED AND PLACED IN CHART. WOUND DOCUMENTATION COMPLETED PER PROTOCOL. UNIT ORIENTATION INCLUDING USE OF CALL LIGHT PROVIDED TO PT WHO VERBALIZED AGREEMENT AND UNDERSTANDING. PT REFUSING TO BE PLACED IN GOWN AT THIS TIME, EDUCATION PROVIDED REGARDING BENEFITS, PT STILL DECLINED. ALL NEEDS ATTENDED TO, BED IS LOCKED AND IN LOWEST POSITION, SIDE RAILS UP X2, CALL LIGHT WITHIN REACH, AWAITING ADMISSION ORDERS.
[2018-05-08] MEDS ORDERED: FEE PK DOSING 1 MIN EA MC ONE (14:58)
[2018-05-08 16:00] VITALS: BP 141/89
--- NOTE | 2018-05-08 16:21 | NUR ---
MS MARIBEL MAST PER FIFI IN PHARMACY KEZIA AND CHARITY WILL BE SENT UP SHORTLY
[2018-05-08] MEDS: VANCOMYCIN 1.25 GM in IV D5W 500 ML IV SCH (16:49)
[2018-05-08] MEDS ORDERED: FERROUS SULFATE (325 MG) 325 MG/TAB TABLET PO SCH (17:00)
[2018-05-08] MEDS ORDERED: BLOOD SUGAR DIAGNOSTIC 1 EACH STRIP VI SCH (17:30)
--- NOTE | 2018-05-08 17:35 | NUR ---
MS RN NOTE THE NURSE WALKED INTO THE ROOM AND FOUND THE PT SITTING AT THE EDGE OF BED EATING DINNER. THE PT'S IV HAD BEEN PAUSED AND THE NURSE RESTARTED IT. THE PT REPORTED "OH I TURNED IT OFF BECAUSE IT KEPT BEEPING". THE NURSE INFORMED THE PT THAT HE SHOULD NEVER TOUCH OR ATTEMPT TO REPROGRAM THE IV PUMP AND PROVIDED RISKS AND BENEFITS. THE NURSE INFORMED THE PT THAT AFTER ABX ADMINISTRATION IS COMPLETE, THE PT WILL BE DISCONNECTED FROM THE IV. PT VERBALIZED AGREEMENT AND UNDERSTANDING.
--- NOTE | 2018-05-08 17:39 | NUR ---
MS RN INSULIN PER GABE IN PHARMACY REGULAR INSULIN FOR SLIDING SCALE WILL BE SENT UP SHORTLY.
[2018-05-08] MEDS: BLOOD SUGAR DIAGNOSTIC 1 EACH STRIP VI SCH ×2 (17:57→22:15)
[2018-05-08] MEDS: FERROUS SULFATE (325 MG) 325 MG/TAB TABLET PO SCH (17:57)
[2018-05-08] MEDS: INSULIN REGULAR, HUMAN 100 UNIT/ML 3 ML VIAL SQ PRN ×2 (18:00→22:26)
[2018-05-08] MEDS: ZOSYN IVPB 3.375 G in IV D5W 50ml IV SCH (19:01)
--- NOTE | 2018-05-08 19:20 | NUR ---
MS RN CLOSING NOTE PT IN BED, ALERT AND ORIENTED X4. DENIES N/V, CHEST PAIN, SOB. BREATHING IS EVEN AND UNLABORED ON ROOM AIR. L AC #20G IV IS SALINE LOCKED WITHOUT REDNESS OR SWELLING. ADLS PROVIDED. PT STILL REFUSING TO WEAR GOWN AT THIS TIME. ALL NEEDS ATTENDED TO, BED IS LOCKED AND IN LOWEST POSITION, SIDE RAILS UP X2, CALL LIGHT WITHIN REACH. WILL ENDORSE TO FURNACE COMBUSTION ANALYST NURSE FOR CONTINUITY OF CARE.
--- NOTE | 2018-05-08 19:50 | NUR ---
MS RN NOTE: PATIENT RESTING IN BED, NO ACUTE DISTRESS NOTED. BREATHING EVEN AND UNLABORED, NO SOB NOTED. IV TO LAC IN PLACE. NO S/S OF HYPER/HYPOGLYCEMIA NOTED. BED LOCKED AND IN LOWEST POSITION, CALL LIGHT IN REACH. WILL CONTINUE TO MONITOR.
[2018-05-08 20:09] VITALS: BP 147/103
[2018-05-08] MEDS ORDERED: INSULIN GLARGINE, 100 UNIT/ML CARTRIDGE SQ SCH (22:00)
[2018-05-08] MEDS: FUROSEMIDE 40 MG/4 ML VIAL IV SCH (22:15)
[2018-05-08] MEDS: oxyCODONE/APAP (5/325 MG) 1 UDTAB TABLET PO PRN (22:18)
[2018-05-08] MEDS: INSULIN GLARGINE, 100 UNIT/ML CARTRIDGE SQ SCH (22:26)
--- NOTE | 2018-05-08 22:30 | NUR ---
MS LÓPEZ NOTE: PATIENT BLOOD SUGAR LEVEL 324 MG/DL, PATIENT TO RECEIVE 12 UNITS PER SLIDING SCALE AND 35 UNIT OF LANTUS PER MD ORDER. NO S/S OF HYPERGLYCEMIA NOTED. WILL CONTINUE TO MONITOR. Addendum: 05/09/18 at 0727 by SABI HUDSON RN PATIENT TO RECEIVE 8 UNITS OF INSULIN PER SLIDING SCALE.
[2018-05-09] MEDS: ZOSYN IVPB 3.375 G in IV D5W 50ml IV SCH ×5 (00:58→23:12)
[2018-05-09] MEDS: VANCOMYCIN 1.25 GM in IV D5W 500 ML IV SCH ×2 (04:48→16:10)
[2018-05-09] MEDS: BLOOD SUGAR DIAGNOSTIC 1 EACH STRIP VI SCH ×4 (07:23→22:40)
[2018-05-09] MEDS: INSULIN REGULAR, HUMAN 100 UNIT/ML 3 ML VIAL SQ PRN ×4 (07:24→22:39)
--- NOTE | 2018-05-09 07:30 | NUR ---
MS RN NOTE: PATIENT RESTING IN BED, NO ACUTE DISTRESS NOTED. BREATHING EVEN AND UNLABORED, NO SOB NOTED. IV TO LAC IN PLACE. PATIENT BLOOD SUGAR 313MG/DL, TO RECEIVE 12 UNITS PER SLIDING SCALE, NO S/S OF HYPER/HYPOGLYCEMIA NOTED. PATIENT ZOSYN IV GIVEN LATE DUE TO PATIENT CONTINUOUSLY BENDING ARM AND IV GIVEN LONGER THAN 2 HOURS. REMINDED PATIENT TO KEEP ARM STRAIGHT TO AVOID IV FROM STOPPING. BED LOCKED AND IN LOWEST POSITION, CALL LIGHT IN REACH. WILL ENDORSE TO DAY NURSE TO CONTINUE WITH PLAN OF CARE.
[2018-05-09 08:00] VITALS: BP 151/88
--- NOTE | 2018-05-09 08:00 | NUR ---
RN NOTES RECEIVED PATIENT IN THE BED SLEEPING. PATIENT AROUSE WHEN CALLED NAME OR TOUCHED. NO ACUTE RESPIRATORY DISTRESS, CALL LIGHT WITHIN TO REACH, CONTINUED MONITORING.
[2018-05-09 08:08] VITALS: BP 151/88
[2018-05-09] MEDS ORDERED: LINAGLIPTIN 5 MG TABLET PO SCH (09:00)
[2018-05-09] MEDS ORDERED: DILTIAZEM HCL CD 240 MG PO SCH (09:00)
--- NOTE | 2018-05-09 09:00 | NUR ---
RN NOTES PATIENT IN THE BED, UPPER CHEST CONGESTED, HARD TO SWALLOW, PAIN IN THE THROAT. ADMINISTERED SCHEDULED MEDICATION V/S TAKEN T-99.3, ENCOURAGED TO EXPRESS FEELINGS AND CONCERNS, STARTED NEW IV LINE ON RIGHT AC AREA INTACT INFUSING NS AT 75ML/HR, INTACT. PATIENT USING BED TUTTLE, NEEDS ATTEN AND ANTICIPATED, JAMAAL LIGHT WITHIN TO REACH, SAFETY PRECAUTION MAINTAINED ALL THE TIME. Addendum: 05/09/18 at 1839 by DIPTI GRACE RN WRONG EATERY.
[2018-05-09] MEDS: oxyCODONE/APAP (5/325 MG) 1 UDTAB TABLET PO PRN ×2 (09:20→16:20)
--- NOTE | 2018-05-09 09:20 | NUR ---
RN NOTES ADMINISTERED PERCOCET 5/325 TWO TABS PAIN 10/10 PER PATIENT REQUEST RIGHT LOWER LEG , V/S TAKEN BP -151/ 88 , P-58, ENCOURAGED TO INCREASE FLUID INTAKE, CONTINUED MONITORING.
[2018-05-09] MEDS: LINAGLIPTIN 5 MG TABLET PO SCH (09:21)
[2018-05-09] MEDS: FERROUS SULFATE (325 MG) 325 MG/TAB TABLET PO SCH ×2 (09:21→16:10)
[2018-05-09] MEDS: DILTIAZEM HCL CD 240 MG PO SCH (09:22)
[2018-05-09] MEDS: FUROSEMIDE 40 MG/4 ML VIAL IV SCH ×2 (09:22→22:06)
[2018-05-09] MEDS ORDERED: FURO10VI IV (12:25)
--- NOTE | 2018-05-09 13:00 | NUR ---
RN NOTES BS-296 MG/DL COVERAGE GIVEN, SCHEDULED MEDICATION ADMINISTERED, MEDICATION WERE ADMINISTERED FOR PAIN EFFECTIVE, PATIENT HAS A DISCOLORATION AND SWOLLEN LOWER EXTREMITIES ENCOURAGED TO KEEP ELEVATED. V/S STABLE. NEXT TO THE BED, CALL LIGHT WITHIN TO REACH, SAFETY PRECAUTION MAINTAINED ALL THE TIME.
--- NOTE | 2018-05-09 14:00 | NUR ---
RN NOTES PATIENT GOING TO TRANSFER ANOTHER HOSPITAL, NO BED AVAILABLE AT THIS TIME.
--- NOTE | 2018-05-09 15:47 | NUR ---
RN NOTES PATIENT REFUSED VANCO TROUGH, NOTIFIED DR ADKINS, AND RESPONDS WAS YES TO GIVE. CONTINUED MONITORING.
[2018-05-09 16:00] VITALS: BP 144/75
[2018-05-09] MEDS: LACTOBACILLUS RHAMNOSUS GG 1 EACH CAP.SPRINK PO SCH (16:10)
--- NOTE | 2018-05-09 16:20 | NUR ---
RN NOTES ADMINISTERED PERCOCET 5/325 MG PO PRN TWO TABS PER PATIENT REQUEST, V/S TAKEN BP-141/74, P-60, CONTINUED MONITORING.
--- NOTE | 2018-05-09 18:30 | NUR ---
RN NOTES PATIENT REFUSED 1700 ZOSYN ANTIBIOTIC BECAUSE IV ACCESS GET INFILTRATED. PATIENT REFUSED NEW IV ACCESS ON RIGHT ARM. APPLIED HOT APPLICANT. PATIENT INSISTING HE NEED MIDLINE LIKE LAST ADMISSION. CHARGE NURSE NOTIFIED. PATIENT RESTING IN THE BED AT THIS TIME, NO ACUTE RESPIRATORY DISTRESS. CALL LIGHT WITHIN TO REACH, NEXT TO THE BED. ENDORSED ONCOMING NURSE FOR PLAN OF CARE.
--- NOTE | 2018-05-09 19:30 | NUR ---
RN NOTES RECEIVED PATIENT AWAKE IN BED, BREATHING EVEN AND NON LABORED, NO SIGNS OF ACUTE DISTRESS NOTED, LEFT ARM IS A BIT SWOLLEN DUE TO IV LINE INFILTRATION, COMPLAINT OF MILD DISCOMFORT BUT DID NOT ASK FOR PAIN MEDICATION, 04/26, INSISTING TO HAVE A MIDLINE ACCESS, INFORMED PATIENT WILL LET THE HEAD STOCK TRANSFER CLERK DCTOR KNOW REGARDING HIS CONCERN, PATIENT VERBALIZED UNDERSTANDING. ALL NEEDS ATTENDED, AT THE BEDSIDE, ALL SAFETY MEASURES INPLACED, WILL MONITOR ACCORDINGLY.
[2018-05-09 20:00] VITALS: BP 110/84
[2018-05-09 20:33] VITALS: BP 128/76
[2018-05-09 20:59] VITALS: BP 128/76
--- NOTE | 2018-05-09 21:06 | NUR ---
RN NOTES PATIENT INSISTING MIDLINE ACCESS FOR IV ANTIBIOTIC, CALLED AND SPOKE TO LOCK SETTER FERNANDO DE LA VEGA TO INSERT MIDLINE. INFORMED CHARGE NURSE BARI AND CALLED RN SOLAR SYSTEMS DESIGNER MARIBEL PULLIAM SOLAR SYSTEMS DESIGNER WILL PROVIDE STAFF PERSONNEL TO INSERT THE MIDLINE, WILL CONTINUE TO MONITOR ACCORDINGLY. PATIENT HAS BEEN NON COMPLIANT OF MEDICAL AND NURSING INTERVENTION SINCE AM SHIFT.
--- NOTE | 2018-05-09 22:00 | NUR ---
RN NOTES PATIENT HAS MIDLINE ACCESS ON HIS RIGHT UPPER EXTREMITY INTACT AND PATENT, INSERTED BY PICC NURSE.
[2018-05-09] MEDS: INSULIN GLARGINE, 100 UNIT/ML CARTRIDGE SQ SCH (22:37)
[2018-05-10] MEDS: VANCOMYCIN 1.25 GM in IV D5W 500 ML IV SCH (04:00)
[2018-05-10] MEDS: ZOSYN IVPB 3.375 G in IV D5W 50ml IV SCH ×3 (04:23→17:00)
--- NOTE | 2018-05-10 06:08 | NUR ---
RN NOTES PATIENT HAS BEEN STABLE THE ENTIRE SHIFT, ABLE TO SLEEP AND REST COMFORTABLY, REFUSING NURSING AND MEDICAL INTERVENTION. SLEEPING AT THIS TIME. WILL ENDORSE TO AM NURSSE FOR CONTINUITY OF CARE.
--- NOTE | 2018-05-10 07:25 | NUR ---
MSRN. PT RECEIVED A&0X3, AT BEDSIDE. PT TOLERATING ROOM AIR WITHOUT DISTRESS AND DENIES PAIN. PT WITH R U ARM MIDLINE INTACT AND SALINE FLUSH PATENT. PT ENDORSED NON COMPLIANT WITH BGL MONITORING, PT AGREEABLE THIS AM TO ACCU CHECK, WILL PROVIDE SS AT BREAKFAST. PT LEGS WITH BILAT EDEMA +1. PT WITH SMALL SORE NOTED TO LEFT SOLE AND TOE. PT BED IN LOWEST LOCKED POSITION WITH HANDRAILSX2 AND CALL CHRIS WITHIN REACH, PT AND BRIEFED ON POC AND ARE WITHOUT CONCERN OR COMPLAINT AT THIS TIME. WILL CONTINUE POC.
[2018-05-10] MEDS: BLOOD SUGAR DIAGNOSTIC 1 EACH STRIP VI SCH ×3 (07:41→17:25)
[2018-05-10] MEDS: FUROSEMIDE 40 MG/4 ML VIAL IV SCH (08:48)
[2018-05-10] MEDS: DILTIAZEM HCL CD 240 MG PO SCH (08:49)
[2018-05-10] MEDS: LINAGLIPTIN 5 MG TABLET PO SCH (08:50)
[2018-05-10] MEDS: LACTOBACILLUS RHAMNOSUS GG 1 EACH CAP.SPRINK PO SCH ×2 (08:50→17:00)
[2018-05-10] MEDS: FERROUS SULFATE (325 MG) 325 MG/TAB TABLET PO SCH ×2 (08:50→17:00)
[2018-05-10] MEDS: oxyCODONE/APAP (5/325 MG) 1 UDTAB TABLET PO PRN (08:52)
[2018-05-10] MEDS: INSULIN REGULAR, HUMAN 100 UNIT/ML 3 ML VIAL SQ PRN ×3 (08:56→17:27)
[2018-05-10 10:13] LABS: CALCIUM, SERUM 8.4 mg/dL (8.5-10.1); CREATININE 1.7 mg/dL (0.6-1.3); POTASSIUM 4.3 mmol/L (3.5-5.1)
[2018-05-10] MEDS ORDERED: FURO-144 PO (11:14)
[2018-05-10] MEDS ORDERED: CEPH-570 PO (11:14)
[2018-05-10] MEDS ORDERED: VANCOMYCIN 1.25 GM in IV D5W 500 ML IV SCH (13:00)
[2018-05-10 16:00] VITALS: BP 130/72
--- NOTE | 2018-05-10 18:32 | NUR ---
MSRN. PT PREPARED FOR D/C PER MD. PT A&0X3 TOLERATING ROOM AIR WITHOUT DISTRESS AND DENIES PAIN. PT R U ARM MIDLINE REMOVED INTACT AND PRESSURE BANDAGE APPLIED WITH INSTRUCTIONS WHEN TO REMOVE. PT REFUSED AFTERNOON AFTERNOON MEDICATIONS AND REMAINS REFUSING SKIN ASSESSMENT PHOTOS. PT WITH MULTIPLE COMPLAINTS REGARDING INSURANCE, PT EXPLAINED AT LENGTH WHO/HOW TO CALL INSURANCE TO HELP WITH PCP. PT BRIEFED ON SOH D/C PACKET, NEW MEDICATIONS AND WHERE TO PUBLIC WORKS MANAGER, PT VERBALIZING UNDERSTANDING AND INTENT TO FOLLOW D/C POC. PT WITH ALL BELONGINGS. PT AMBULATORY EXIT WITH STAFF MEMBER TO FRIEND FOR TRANSPORT.
== END 2018-05-10 18:32 | disposition home or self-care (01) | DRG 383 ==
LOC: ER 08:26 → MED 14:19
DX: L03.116 Cellulitis of left lower limb (principal); N17.9 Acute kidney failure, unspecified; E44.0 Moderate protein-calorie malnutrition; E11.22 Type 2 diabetes mellitus with diabetic chronic kidney disease; N18.3 Chronic kidney disease, stage 3 (moderate); E87.70 Fluid overload, unspecified; Z68.41 Body mass index [BMI] 40.0-44.9, adult; E11.9 Type 2 diabetes mellitus without complications; I10 Essential (primary) hypertension; K21.9 Gastro-esophageal reflux disease without esophagitis; L03.115 Cellulitis of right lower limb; E66.9 Obesity, unspecified; F17.210 Nicotine dependence, cigarettes, uncomplicated; Z82.49 Family history of ischemic heart disease and other diseases of the circulatory system; Z83.3 Family history of diabetes mellitus; Z91.14 Patient's other noncompliance with medication regimen; I12.9 Hypertensive chronic kidney disease with stage 1 through stage 4 chronic kidney disease, or unspecified chronic kidney disease
CPT/HCPCS: 36415; 80048-TC; 80076-TC; 80202-TC; 82962-TC; 83605-TC; 84484-TC; 85025-TC; 85730-TC; 87040-TC; 87081-TC; A6403; G0378; J0360; J1170; J1815; J1940; J2543; J3370; J3490; J7050; J7060

== ENCOUNTER 2018-09-21 02:26 | Inpatient (IN) | payer MEDICAID ==
[~2018-09-21] VITALS: Ht 182.9 cm; Wt 149.2 kg
[~2018-09-21 02:26] MED LIST changes: +CEPH-570 PO; -CLIN300C11 PO; +FERR325T23 PO; -FERR325T28 PO; +FURO-144 PO; +INSU100V7 SQ; -Insulin Glargine,Hum SQ
--- NOTE | 2018-09-21 03:28 | NUR ---
PT PRESENTED TO THE ER WITH A C/O BLE LYMPHEDEMA, SEVERE SCROTAL EDMEA WITH 10/10 PAIN. PT HAS HX OF CHF. PT IS UNABLE TO AMBULATED WITH THE PAIN. DR. JOHNSON IS AT THE BEDSIDE EVALUATING THE PT. PT IS ON THE MONITOR AND CONTINUOUS PULSE OX. PT'S BP IS ELEVATED.
[2018-09-21 03:54] LABS: APPEARANCE,URINE Clear (CLEAR); BILIRUBIN,URINE Negative (NEGATIVE); BLOOD, URINE Moderate Ery/uL (NEGATIVE); COLOR,URINE Yellow (YELLOW); KETONES,URINE Negative (NEGATIVE); LEUKOCYTE ESTERASE ,URINE Negative (NEGATIVE); NITRITE, URINE Negative (NEGATIVE); PH,URINE 5.5 (5.0-8.0); PROTEIN,URINE >=300 mg/dl (NEGATIVE); UGLUCOSE 250 MG/DL mg/dL (NEGATIVE)
--- NOTE | 2018-09-21 03:54 | NUR ---
BLOOD WAS DRAWN AND SENT TO LAB.
[2018-09-21 03:58] LABS: BASOPHILS # (AUTO) 0.1 /CMM (0.0-0.2); BASOPHILS % (AUTO) 0.6 % (0.0-2.0); EOSINOPHILS % (AUTO) 2.1 % (0.0-6.0); HEMATOCRIT 30 % (39-51); HEMOGLOBIN 9.7 g/dL (13.5-17.5); LYMPHOCYTES # (AUTO) 1.8 /CMM (0.8-4.8); MEAN CORPUSCULAR HGB CONC 33 g/dl (31.0-36.0); MEAN CORPUSCULAR VOLUME 74 fL (80-96); MONOCYTES # (AUTO) 0.9 /CMM (0.1-1.30); MONOCYTES % (AUTO) 9.4 % (2.0-12.0); NEUTROPHILS # (AUTO) 6.3 /CMM (1.8-8.9); NEUTROPHILS % (AUTO) 68.9 % (43.0-81.0); PLATELET COUNT (AUTO) 358 /CMM (150-450); RED BLOOD CELL COUNT(AUTO) 4.02 MIL/uL (4.5-6.0); WHITE BLOOD COUNT (AUTO) 9.2 K/uL (4.3-11.0)
--- NOTE | 2018-09-21 04:00 | NUR ---
CXR DONE AT THE BEDSIDE.
[2018-09-21 04:05] LABS: CALCIUM, SERUM 7.7 mg/dL (8.5-10.1); CREATININE 2.2 mg/dL (0.6-1.3); POTASSIUM 4.6 mmol/L (3.5-5.1)
[2018-09-21] MEDS ORDERED: ONDANSETRON HCL/PF 4 MG/2 ML VIAL ONE (04:15)
--- NOTE | 2018-09-21 04:15 | NUR ---
US TECH IS AT THE BEDSIDE.
[2018-09-21] MEDS ORDERED: LABETALOL HCL IV 100MG VIAL ONE (04:16)
[2018-09-21] MEDS ORDERED: MORPHINE SULFATE INJ 2 MG/ML DISP.SYRIN ONE (04:16)
[2018-09-21 04:17] LABS: ALBUMIN 1.9 g/dL (3.4-5.0); BILIRUBIN,DIRECT 0.1 mg/dL (0.0-0.2); BILIRUBIN,TOTAL 0.2 mg/dL (0.2-1.0)
[2018-09-21] MEDS ORDERED: MORPHINE SULFATE INJ 2 MG/ML DISP.SYRIN IV ONE (04:30)
[2018-09-21] MEDS ORDERED: FUROSEMIDE 40 MG/4 ML VIAL IV ONE (04:30)
[2018-09-21] MEDS ORDERED: LABETALOL 20 MG/4 ML VIAL IV ONE (04:30)
[2018-09-21] MEDS ORDERED: ONDANSETRON HCL/PF - ER 4 MG/2 ML VIAL IV ONE (04:30)
[2018-09-21 04:31] LABS: BACTERIA,URINE Few /HPF (None Seen); SQUAMOUS EPITHELIAL CELL,UR Rare /HPF (None Seen); YEAST,URINE Rare /HPF (None Seen)
[2018-09-21] MEDS ORDERED: FUROSEMIDE 40 MG/4 ML VIAL ONE (04:33)
--- NOTE | 2018-09-21 04:35 | NUR ---
PT'S O2 SAT WAS 92% -94% ON RA. PT WAS PLACED ON 2L O2 VIA NC PRECAUTION.
--- NOTE | 2018-09-21 04:40 | NUR ---
PT IS GOING TO TELE 316-1
--- NOTE | 2018-09-21 04:57 | NUR ---
CALLED FARHAT RE: US READ AND CXR READ.
[2018-09-21] MEDS ORDERED: ZOLPIDEM TARTRATE 5 MG TABLET PO PRN (05:00)
[2018-09-21] MEDS ORDERED: ONDANSETRON HCL/PF 4 MG/2 ML VIAL IVP PRN (05:00)
[2018-09-21] MEDS ORDERED: MAGNESIUM HYDROXIDE 30 ML UDC PO PRN (05:00)
[2018-09-21] MEDS ORDERED: MAG HYDROX/AL HYDROX/SIMETH 30 ML UDC PO PRN (05:00)
[2018-09-21] MEDS ORDERED: Z GUARD REMEDY 2 OZ OINT TP PRN (05:00)
[2018-09-21] MEDS ORDERED: Medication Not On Formulary EA (Ondansetron Hcl (Zofran) 4 MG) PO PRN (05:00)
--- NOTE | 2018-09-21 05:00 | NUR ---
RN NOTES REPORT GIVEN TO Juan COOPER RN. PT WILL BE TRANSFED TO ROOM 316.
--- NOTE | 2018-09-21 05:50 | NUR ---
new admission note rn patient arrived on unit in no apparent distress. admitted for chf exac to dr. pandya telemetry. on room air sat at 95%. new orders recieved. admission interview performed. patient oriented to unit. reviewed poc questions concerns addressed. patient friend at bed side referred to as step dad. telemetry to be applied. 0600 pictures taken of wounds.
[2018-09-21 06:00] VITALS: BP 147/90
[2018-09-21 08:00] VITALS: BP 146/96
--- NOTE | 2018-09-21 08:00 | NUR ---
MS RN OPENING NOTES Received Patient awake and sitting on edge of bed talking with friend at bedside. A/O x 4. VS stable with no acute distress. Breathing even and unlabored on room air. Patient stated pain level 4-5/10 on SCROTUM. Will intervene as ordered. 18g on RAC clean, dry, intact and flushing well. D/C telemonitor per Raymundo OCHOA. Safety precautions in place. Bed locked and set to lowest position x 1 side rails. Will continue to monitor.
[2018-09-21] MEDS ORDERED: oxyCODONE/APAP (5/325 MG) 1 UDTAB TABLET PO PRN ×2 (09:00)
[2018-09-21] MEDS: FERROUS SULFATE (325 MG) 325 MG/TAB TABLET PO SCH ×2 (10:09→17:57)
[2018-09-21] MEDS: LINAGLIPTIN 5 MG TABLET PO SCH (10:09)
[2018-09-21] MEDS: DILTIAZEM HCL CD 240 MG PO SCH (10:09)
[2018-09-21] MEDS: FUROSEMIDE 40 MG/4 ML VIAL IV SCH (10:10)
--- NOTE | 2018-09-21 10:13 | NUR ---
WOUND CARE CONSULT WOUND CARE RECEIVED CONSULT FOR LEFT FOOT OPEN WOUND, SCAB AND BLOOD BLISTER RIGHT FOOT. WOUND CARE WILL DEFER CONSULT AND TREATMENT PLANS TO DPM DR POTTS WHO HAS BEEN NOTIFIED OF THIS CONSULT. PATIENT WITH MICHAEL AT 17, WILL SEE PRN.
--- NOTE | 2018-09-21 10:25 | NUR ---
MS RN NOTES Patient seen by Марина OCHOA - obtain consent for BILATERAL LOWER EXTREMITY WOUND DEBRIDEMENT.
[2018-09-21] MEDS: HEPARIN SODIUM, PORCINE 5000 UNITS/1 ML VIAL SQ SCH ×2 (10:29→20:25)
[2018-09-21] MEDS: HYDROMORPHONE 1 MG/1 ML DISP.SYRIN IV PRN ×2 (11:23→20:14)
[2018-09-21] MEDS ORDERED: DEXTROSE 50%-WATER 50 ML DISP.SYRIN IV PRN (11:30)
[2018-09-21] MEDS: BLOOD SUGAR DIAGNOSTIC 1 EACH STRIP IN SCH ×3 (12:00→21:31)
[2018-09-21] MEDS: GABAPENTIN 100 MG CAPSULE PO SCH ×3 (13:00→17:57)
[2018-09-21] MEDS: INSULIN REGULAR, HUMAN 100 UNIT/ML 3 ML VIAL SQ PRN (14:00)
--- NOTE | 2018-09-21 14:19 | NUR ---
MS RN NOTES Patient refused Gabapentin 100mg PO. Explained risks and benefits of medication. Patient still refused d/t history of legs feeling like "clown feet". Will continue to monitor.
--- NOTE | 2018-09-21 19:23 | NUR ---
MS RN CLOSING NOTES Patient comfortable and resting in bed. A/O x 4. VS stable with no acute distress. Breathing even and unlabored on room air. Denies pain. 18g on RAC clean, dry, intact and flushing well. Safety precautions in place. Bed locked and set to lowest position x 1 side rails. All needs rendered at this time. Will endorse plan of care to oncoming shift.
--- NOTE | 2018-09-21 19:24 | NUR ---
MS/RN OPENING NOTES RECEIVED PATIENT ALERT, ORIENTED X3, ABLE TO VERBALIZE NEEDS, AWAKE, ALERT X3, RESPIRATIONS EVEN AND UNLABORED, PATIENT CONCERN ADDRESSED REPORTED THAT PATIENT HOME MEDICATION LANTUS HE IS TAKING ONLY 10 UNITS ANT NOT 37 TO FOLLOW UP WITH MD, ALSO REPORTED PAIN OF 5/10 WILL MONITOR AND GIVE NEEDED MEDICATOPN. PATIENT RECEIVED REPORT FROM AM RN FOR KANDY. ASSISTED AND KEPT BELONGINGS WITHIIN DEVANG.
[2018-09-21 20:00] VITALS: BP 142/88
--- NOTE | 2018-09-21 20:15 | NUR ---
to clarify per patient home med lantus taking only 20 not 37 units will f/u
--- NOTE | 2018-09-21 20:16 | NUR ---
ms/rn notes reported pain 7/10 on lower feet, dilaudid 1mg iv to give
[2018-09-21] MEDS: INSULIN GLARGINE, 100 UNIT/ML CARTRIDGE SQ SCH (21:36)
--- NOTE | 2018-09-21 21:36 | NUR ---
MS/RN NOTES PATIENT VERBALIZED LANTUS HOME MEDICATIONS AND WOULD LIKE TO KEEP ORDERED NOT TAKE 37 UNIT. BLOOD SUGAR AT THIS TIME IAT 126 AND REFUSE LANTUS, ASLEEP .
[2018-09-21] MEDS ORDERED: INSULIN GLARGINE, 100 UNIT/ML CARTRIDGE SQ SCH (22:00)
[2018-09-22 05:59] LABS: APPEARANCE,URINE CLEAR (CLEAR); BILIRUBIN,URINE NEGATIVE (NEGATIVE); BLOOD, URINE 2+ Ery/uL (NEGATIVE); COLOR,URINE YELLOW (YELLOW); KETONES,URINE NEGATIVE (NEGATIVE); LEUKOCYTE ESTERASE ,URINE NEGATIVE (NEGATIVE); NITRITE, URINE NEGATIVE (NEGATIVE); PH,URINE 5.5 (5.0-8.0); PROTEIN,URINE 3+ mg/dl (NEGATIVE); UGLUCOSE TRACE mg/dL (NEGATIVE); UROBILINOGEN,URINE 0.2 EU/dL (0.2)
[2018-09-22 06:16] LABS: BACTERIA,URINE Few /HPF (None Seen); SQUAMOUS EPITHELIAL CELL,UR None Seen /HPF (None Seen)
[2018-09-22] MEDS: BLOOD SUGAR DIAGNOSTIC 1 EACH STRIP IN SCH ×4 (06:32→21:46)
--- NOTE | 2018-09-22 06:36 | NUR ---
blood sugar check at 171 after patient had a snack
[2018-09-22 07:06] LABS: BASOPHILS % (AUTO) 0.3 % (0.0-2.0); EOSINOPHILS % (AUTO) 4.4 % (0.0-6.0); HEMATOCRIT 33 % (39-51); HEMOGLOBIN 10.6 g/dL (13.5-17.5); LYMPHOCYTES % (AUTO) 18.4 % (20.0-44.0); MEAN CORPUSCULAR HGB CONC 32 g/dl (31.0-36.0); MEAN CORPUSCULAR VOLUME 74 fL (80-96); MONOCYTES # (AUTO) 0.8 /CMM (0.1-1.30); MONOCYTES % (AUTO) 7.8 % (2.0-12.0); NEUTROPHILS # (AUTO) 7.3 /CMM (1.8-8.9); NEUTROPHILS % (AUTO) 69.1 % (43.0-81.0); PLATELET COUNT (AUTO) 494 /CMM (150-450); RED BLOOD CELL COUNT(AUTO) 4.45 MIL/uL (4.5-6.0); WHITE BLOOD COUNT (AUTO) 10.6 K/uL (4.3-11.0)
[2018-09-22] MEDS: INSULIN REGULAR, HUMAN 100 UNIT/ML 3 ML VIAL SQ PRN ×4 (07:10→21:45)
--- NOTE | 2018-09-22 07:15 | NUR ---
316-1 MS/RN NOTES PATIENT ABLE TO SLEEP DURING THE NIGHT, RESPIRATIONS EVEN AND UNLABORED. ON PAIN MANAGEMENT MONITORING FOR BILATERAL FOOT WOUND. KEPT COMFORTABLE, SUPERVISED FOR SAFETY. KEPT BELONGINGS WITHIN REACH, ATTENDED TO ALL NEEDS, WILL ENDORSE TO AM RN FOR KANDY. CALL LIGHTS WITHIN REACH, BED LOCKED. OFFERED AND PROVIDED FLUIDS
[2018-09-22 07:18] LABS: BILIRUBIN,TOTAL 0.4 mg/dL (0.2-1.0); CALCIUM, SERUM 8.2 mg/dL (8.5-10.1); CREATININE 1.9 mg/dL (0.6-1.3); MAGNESIUM 2.1 mg/dL (1.8-2.4); PHOSPHORUS 3.9 mg/dL (2.5-4.9); POTASSIUM 4.4 mmol/L (3.5-5.1); TOTAL PROTEIN, SERUM 6.5 g/dL (6.4-8.2)
[2018-09-22 07:24] LABS: THYROID STIMULATING HORMONE 3.784 uIU/mL (0.358-3.74)
[2018-09-22 07:25] LABS: EOSINOPHIL,URINE Rare
[2018-09-22 08:00] VITALS: BP 144/77
--- NOTE | 2018-09-22 08:00 | NUR ---
MS RN OPENING NOTES Received Patient comfortable and asleep in bed. A/O x 4. VS stable with no acute distress. Breathing even and unlabored on room air. No signs and symptoms of pain. Safety precautions in place. Bed locked and set to lowest position with side rails x 1 up. All needs rendered at this time. Will continue to monitor.
[2018-09-22 08:03] LABS: FERRITIN 212 ng/mL (8-388); IRON, SERUM 24 ug/dl (50-175)
[2018-09-22 08:10] LABS: BAND % (MANUAL) 1 % (0.0-5.0); EOSINOPHILS % (MANUAL) 7 % (0-4); LYMPHOCYTES % (MANUAL) 16 % (16-48); MONOCYTES % (MANUAL) 5 % (0-11.0); MYELOCYTES % 2 % (0-0); NEUTROPHILS % (MANUAL) 69 (42-76)
[2018-09-22] MEDS: DILTIAZEM HCL CD 240 MG PO SCH (09:57)
[2018-09-22] MEDS: FUROSEMIDE 40 MG/4 ML VIAL IV SCH (09:57)
[2018-09-22] MEDS: FERROUS SULFATE (325 MG) 325 MG/TAB TABLET PO SCH ×3 (09:57→17:25)
[2018-09-22] MEDS: LINAGLIPTIN 5 MG TABLET PO SCH (09:58)
[2018-09-22] MEDS: GABAPENTIN 100 MG CAPSULE PO SCH ×4 (09:58→17:25)
[2018-09-22] MEDS: HEPARIN SODIUM, PORCINE 5000 UNITS/1 ML VIAL SQ SCH ×2 (09:59→21:45)
[2018-09-22] MEDS: HYDROGEL DRESSING 90 GM TUBE TP SCH (10:01)
[2018-09-22] MEDS: HYDROMORPHONE 1 MG/1 ML DISP.SYRIN IV PRN ×2 (11:13→21:46)
[2018-09-22 14:08] LABS: PTH, INTACT 134 pg/mL (15-65)
[2018-09-22 16:00] VITALS: BP 130/73
--- NOTE | 2018-09-22 19:56 | NUR ---
MS RN CLOSING NOTES Patient comfortable and asleep in bed. A/O x 4. VS stable with no acute distress. Breathing even and unlabored on room air. No signs and symptoms of pain. BILATERAL FEET dressings clean, dry, and intact. Safety precautions in place. Bed locked and set to lowest position with side rails x 1 up. All needs rendered at this time. Will endorse plan of care to oncoming shift.
[2018-09-22 20:00] VITALS: BP 127/58
[2018-09-22] MEDS: INSULIN GLARGINE, 100 UNIT/ML CARTRIDGE SQ SCH (21:43)
--- NOTE | 2018-09-22 22:32 | NUR ---
MS RN NOTES RECEIVED PATIENT ASLEEP IN BED WITH NO DISTRESS NOTED. CALL LIGHT WITHIN REACH. PERIPHERAL LINE INTACT AND PATENT. BED IN LOW LOCK SETTING. ROOM FREE OF CLUTTER AND BELONGINGS KEPT NEAR BEDSIDE. WILL CONTINUE TO MONITOR.
--- NOTE | 2018-09-23 01:30 | NUR ---
PERIPHERAL LINE IN RAC #18 GAUGE LEAKING. LINE REPLACED WITH LAC #22 GAUGE AND TOLERATED WELL. NO ACTIVE BLEEDING NOTED AND FLUSHING WELL. WILL CONTINUE TO MONITOR.
[2018-09-23] MEDS: INSULIN REGULAR, HUMAN 100 UNIT/ML 3 ML VIAL SQ PRN ×4 (06:32→22:15)
[2018-09-23] MEDS: BLOOD SUGAR DIAGNOSTIC 1 EACH STRIP IN SCH ×4 (06:34→22:05)
[2018-09-23] MEDS: HYDROMORPHONE 1 MG/1 ML DISP.SYRIN IV PRN ×6 (06:34→19:47)
--- NOTE | 2018-09-23 06:50 | NUR ---
MS RN NOTES PATIENT AWAKE IN BED WITH NO DISTRESS NOTED. CALL LIGHT WITHIN REACH. NO FURTHER C/O PAIN OR DISCOMFORT. ALL DUE MEDS GIVEN ORDERED WITH NO ASE NOTED. PERIPHERAL LINE INTACT AND PATENT. SKIN TREATMENT RENDERED AND TOLERATED WELL. BED IN LOW LOCK SETTING. ALL BELONGINGS KEPT NEAR BEDSIDE. WILL CONTINUE TO MONITOR.
[2018-09-23 07:06] LABS: CREATININE 1.9 mg/dL (0.6-1.3); POTASSIUM 4.5 mmol/L (3.5-5.1)
[2018-09-23 08:00] VITALS: BP 131/84
[2018-09-23] MEDS: HYDROGEL DRESSING 90 GM TUBE TP SCH (09:00)
[2018-09-23] MEDS: LINAGLIPTIN 5 MG TABLET PO SCH (09:15)
[2018-09-23] MEDS: GABAPENTIN 100 MG CAPSULE PO SCH ×3 (09:15→17:17)
[2018-09-23] MEDS: FERROUS SULFATE (325 MG) 325 MG/TAB TABLET PO SCH ×2 (09:15→17:17)
[2018-09-23] MEDS: DILTIAZEM HCL CD 240 MG PO SCH (09:16)
[2018-09-23] MEDS: FUROSEMIDE 40 MG/4 ML VIAL IV SCH (09:22)
[2018-09-23] MEDS: HEPARIN SODIUM, PORCINE 5000 UNITS/1 ML VIAL SQ SCH ×2 (09:26→21:55)
[2018-09-23] MEDS: METOLAZONE 2.5 MG TABLET PO SCH (10:00)
[2018-09-23 16:00] VITALS: BP 136/84
--- NOTE | 2018-09-23 19:30 | NUR ---
RN OPENING NOTES PATIENT IS AWAKE, RESTING COMFORTABLY IN BED. PATIENT IS A/O X4. NO SIGNS OF RESPIRATORY DISTRESS NOTED. DENIES SOB. PATIENT IS COMPLAINING OF PAIN 10/10 ON GROIN AREA. PERIPHERAL IV INTACT AND PATENT. ALL BELONGINGS AT BEDSIDE. SAFETY PRECAUTIONS IMPLEMENTED; CALL LIGHT WITHIN REACH, BED LOW, BED LOCKED, SIDE RAILS UP X2. WILL CONTINUE TO MONITOR PATIENT THROUGHOUT THE SHIFT.
[2018-09-23 20:00] VITALS: BP 143/76
--- NOTE | 2018-09-23 20:28 | NUR ---
RN NOTES PATIENT IS REFUSING SKIN ASSESSMENT AND PHOTOS ON HIS SCROTUM/GROIN AREA. PATIENT STATES HE FEELS VERY EMBARRASSED. PATIENT WITHDRAWS AND COVERS GROIN/SCROTUM AREA.
[2018-09-23] MEDS: INSULIN GLARGINE, 100 UNIT/ML CARTRIDGE SQ SCH (22:14)
[2018-09-24] MEDS: HYDROMORPHONE 1 MG/1 ML DISP.SYRIN IV PRN (02:11)
--- NOTE | 2018-09-24 02:30 | NUR ---
RN NOTES PERFORMED WOUND CARE ON BOTH FEET. CLEANSED WITH NS, APPLIED HYDROGEL, WRAPPED WITH KERLIX AND WRAPPED WITH ITMMY BANDAGE OVER BOTH FEET.
[2018-09-24] MEDS: INSULIN REGULAR, HUMAN 100 UNIT/ML 3 ML VIAL SQ PRN (06:26)
--- NOTE | 2018-09-24 06:43 | NUR ---
RN CLOSING NOTES PATIENT IS ASLEEP, RESTING COMFORTABLY IN BED. NO SIGNS OF RESPIRATORY DISTRESS OR SOB NOTED. NO SIGNS OF FACIAL GRIMACING OR DISCOMFORT AT THIS TIME. PERIPHERAL IV INTACT AND PATENT. ALL BELONGINGS AT BEDSIDE. WOUND CARE WAS IMPLEMENTED. SAFETY PRECAUTIONS IMPLEMENTED. CALL LIGHT WITHIN REACH, BED LOW, BED LOCKED, SIDERAILS UP X2. WILL ENDORSE TO AM SHIFT.
[2018-09-24] MEDS: BLOOD SUGAR DIAGNOSTIC 1 EACH STRIP IN SCH ×3 (07:30→17:30)
[2018-09-24 08:24] VITALS: BP 148/97
[2018-09-24] MEDS: FERROUS SULFATE (325 MG) 325 MG/TAB TABLET PO SCH ×2 (09:11→17:00)
[2018-09-24] MEDS: METOLAZONE 2.5 MG TABLET PO SCH (09:11)
[2018-09-24] MEDS: GABAPENTIN 100 MG CAPSULE PO SCH ×3 (09:11→17:00)
[2018-09-24] MEDS: DILTIAZEM HCL CD 240 MG PO SCH (09:11)
[2018-09-24] MEDS: LINAGLIPTIN 5 MG TABLET PO SCH (09:11)
[2018-09-24] MEDS: HEPARIN SODIUM, PORCINE 5000 UNITS/1 ML VIAL SQ SCH (09:14)
[2018-09-24] MEDS: HYDROGEL DRESSING 90 GM TUBE TP SCH (09:15)
[2018-09-24] MEDS: FUROSEMIDE 40 MG/4 ML VIAL IV SCH (09:16)
[2018-09-24 14:01] LABS: BASOPHILS % (AUTO) 0.6 % (0.0-2.0); EOSINOPHILS % (AUTO) 4.1 % (0.0-6.0); HEMATOCRIT 32 % (39-51); HEMOGLOBIN 10.4 g/dL (13.5-17.5); LYMPHOCYTES # (AUTO) 1.4 /CMM (0.8-4.8); MEAN CORPUSCULAR HGB CONC 33 g/dl (31.0-36.0); MEAN CORPUSCULAR VOLUME 74 fL (80-96); MONOCYTES # (AUTO) 0.7 /CMM (0.1-1.30); MONOCYTES % (AUTO) 8.7 % (2.0-12.0); NEUTROPHILS # (AUTO) 5.4 /CMM (1.8-8.9); NEUTROPHILS % (AUTO) 68.6 % (43.0-81.0); PLATELET COUNT (AUTO) 533 /CMM (150-450); RED BLOOD CELL COUNT(AUTO) 4.29 MIL/uL (4.5-6.0); WHITE BLOOD COUNT (AUTO) 7.9 K/uL (4.3-11.0)
[2018-09-24 14:09] LABS: ALBUMIN 1.8 g/dL (3.4-5.0); BILIRUBIN,TOTAL 0.2 mg/dL (0.2-1.0); CALCIUM, SERUM 8.2 mg/dL (8.5-10.1); CREATININE 2.1 mg/dL (0.6-1.3); PHOSPHORUS 3.8 mg/dL (2.5-4.9); POTASSIUM 4.5 mmol/L (3.5-5.1)
[2018-09-24 14:26] LABS: EOSINOPHILS % (MANUAL) 3 % (0-4); LYMPHOCYTES % (MANUAL) 12 % (16-48); MONOCYTES % (MANUAL) 6 % (0-11.0); NEUTROPHILS % (MANUAL) 79 (42-76)
[2018-09-24 16:05] VITALS: BP 144/85
[2018-09-24] MEDS ORDERED: CEPHALEXIN MONOHYDRATE 250 MG CAPSULE PO SCH (18:00)
--- NOTE | 2018-09-24 19:34 | NUR ---
RN OPENING NOTES RECEIVED PATIENT FROM MARIBEL VASQUEZ. PATIENT STATES HE RECEIVED PAPERWORK AND IS READY TO GO HOME. MARIBEL VASQUEZ STATES HE REFUSES TO SIGN PAPERWORK AND PATIENT IS WAITING FOR MOM TO PICK HIM UP. IV SITES REMOVED. PATIENT IS WAITING FOR RIDE HOME AT THIS TIME.
--- NOTE | 2018-09-24 20:21 | NUR ---
RN NOTES [facility]SP[facility]ATION WAS ARRANGED BY ALESIA LUDWIG. PATIENT IS GETTING DISCHARGED TO [address] [place] [address]. PATIENT STATES THAT IS HIS HOME ADDRESS. PATIENT STATES HE HAS THE KEYS TO ENTER HOME.
--- NOTE | 2018-09-24 21:00 | NUR ---
RN NOTES PATIENT REFUSED HEPARIN. REMINDED PATIENT RISKS AND BENEFITS OF MEDICATION. PATIENT STILL REFUSED MEDICATION.
--- NOTE | 2018-09-24 21:30 | NUR ---
RN NOTES PATIENT WAS DISCHARGED AT 2119 VIA [facility]. MADIE VAZQUEZ TRANSPORTED HIM DOWN TO THE LOBBY TO BE PICKED UP.
--- NOTE | 2018-09-24 22:44 | NUR ---
RN NOTES VITAL SIGNS PRIOR TO DISCHARGE: BP 161/99, PULSE 93, RESP 20, TEMP 98.7, O2 SAT 97%
[2018-09-25 01:11] LABS: T3, FREE 2.4 pg/mL (2.0-4.4)
[2018-09-25 05:11] LABS: *SPE A/G RATIO 0.7 (0.7-1.7); *SPE ALBUMIN 2.5 g/dL (2.9-4.4); *SPE ALPHA-1-GLOBULIN 0.4 g/dL (0.0-0.4); *SPE ALPHA-2-GLOBULIN 1.2 g/dL (0.4-1.0); *SPE BETA GLOBULIN 0.8 g/dL (0.7-1.3); *SPE GLOBULIN, TOTAL 3.4 g/dL (2.2-3.9); *SPE M-SPIKE Not Observed g/dL (Not Observed); *SPEGAMMA GLOBULIN 1.1 g/dL (0.4-1.8)
[2018-09-25 06:11] LABS: *SPE A/G RATIO 0.7 (0.7-1.7); *SPE ALBUMIN 2.3 g/dL (2.9-4.4); *SPE ALPHA-1-GLOBULIN 0.3 g/dL (0.0-0.4); *SPE ALPHA-2-GLOBULIN 1.1 g/dL (0.4-1.0); *SPE BETA GLOBULIN 0.8 g/dL (0.7-1.3); *SPE GLOBULIN, TOTAL 3.1 g/dL (2.2-3.9); *SPE M-SPIKE Not Observed g/dL (Not Observed); *SPEGAMMA GLOBULIN 0.8 g/dL (0.4-1.8)
[2018-09-25 09:17] LABS: FOLIC ACID 10.2 ng/mL (>3.0)
[2018-09-25 10:16] LABS: *PEUR ALBUMIN 46.8 % (.); *PEUR ALPHA-1-GLOBULIN 6.4 % (.); *PEUR ALPHA-2-GLOBULIN 10.6 % (.); *PEUR BETA GLOBULIN 14.3 % (.); *PEUR GAMMA GLOBULIN 21.8 % (.)
[2018-09-25 13:08] LABS: PTH, INTACT 106 pg/mL (15-65)
== END 2018-09-24 21:15 | disposition home or self-care (01) | DRG 194 ==
LOC: ER 02:30 → TELE 05:27 → MED 08:34
PROVIDERS: ADMIT Nurse Practitioner Acute Care; ATTEND Nurse Practitioner Acute Care
PROC: 0JBQ0ZZ Excision of Right Foot Subcutaneous Tissue and Fascia, Open Approach (ICD-10-PCS; principal; 2018-09-24)
PROC: 0JBR0ZZ Excision of Left Foot Subcutaneous Tissue and Fascia, Open Approach (ICD-10-PCS; principal; 2018-09-24)
DX: I13.0 Hypertensive heart and chronic kidney disease with heart failure and stage 1 through stage 4 chronic kidney disease, or unspecified chronic kidney disease (principal); N17.0 Acute kidney failure with tubular necrosis; E11.21 Type 2 diabetes mellitus with diabetic nephropathy; E44.0 Moderate protein-calorie malnutrition; D68.59 Other primary thrombophilia; E11.22 Type 2 diabetes mellitus with diabetic chronic kidney disease; E11.42 Type 2 diabetes mellitus with diabetic polyneuropathy; L03.115 Cellulitis of right lower limb; E11.65 Type 2 diabetes mellitus with hyperglycemia; N18.9 Chronic kidney disease, unspecified; D50.9 Iron deficiency anemia, unspecified; K21.9 Gastro-esophageal reflux disease without esophagitis; Z87.440 Personal history of urinary (tract) infections; Z83.3 Family history of diabetes mellitus; E66.01 Morbid (severe) obesity due to excess calories; E78.1 Pure hyperglyceridemia; E78.5 Hyperlipidemia, unspecified; F17.210 Nicotine dependence, cigarettes, uncomplicated; N13.30 Unspecified hydronephrosis; N43.3 Hydrocele, unspecified; Z79.4 Long term (current) use of insulin; Z91.19 Patient's noncompliance with other medical treatment and regimen; I87.8 Other specified disorders of veins; I34.0 Nonrheumatic mitral (valve) insufficiency; Z68.41 Body mass index [BMI] 40.0-44.9, adult; Z71.3 Dietary counseling and surveillance; E11.621 Type 2 diabetes mellitus with foot ulcer; L97.518 Non-pressure chronic ulcer of other part of right foot with other specified severity; L97.528 Non-pressure chronic ulcer of other part of left foot with other specified severity; R16.2 Hepatomegaly with splenomegaly, not elsewhere classified; I50.33 Acute on chronic diastolic (congestive) heart failure; N50.3 Cyst of epididymis; N43.41 Spermatocele of epididymis, single
CPT/HCPCS: 36415; 71045-TC; 71250-TC; 76870-TC; 80048-TC; 80053-TC; 80061-TC; 80076-TC; 81000-TC; 82232; 82550-TC; 82728-TC; 82962-TC; 83540-TC; 83615-TC; 83735-TC; 83880; 83970; 84100-TC; 84155; 84156; 84165; 84166; 84439-TC; 84443-TC; 84481; 84484-TC; 85025-TC; 85730-TC; 86592; 86706; 86709-TC; 86803; 87040-TC; 87070-TC; 87081-TC; 87086-TC; 87340; 87806; 93307-TC; 97110-TC; 97116-TC; 97530-TC; A6248; A6402; A6403; G0378; J1170; J1644; J1815; J1940; J2270; J2405; J3490

== ENCOUNTER 2018-10-17 05:53 | Emergency (ER) | payer MEDICAID ==
[~2018-10-17] VITALS: Ht 182.9 cm; Wt 133.8 kg
[~2018-10-17 05:53] MED LIST changes: -CEPH-570 PO
--- NOTE | 2018-10-17 05:57 | NUR ---
PT BIB RA WITH A C/O CHF EXACERBATION. PT IS NON COMPLIANT WITH MEDICATIONS. PT HAS NOT TAKEN LASIX FOR 3 DAYS.
[2018-10-17] MEDS ORDERED: FUROSEMIDE 40 MG/4 ML VIAL ONE (06:12)
--- NOTE | 2018-10-17 06:26 | NUR ---
PT REC'D MEDICATION ORDERED.
[2018-10-17] MEDS ORDERED: FUROSEMIDE 40 MG/4 ML VIAL IV ONE (06:30)
[2018-10-17 06:33] LABS: BASOPHILS # (AUTO) 0.1 /CMM (0.0-0.2); BASOPHILS % (AUTO) 0.6 % (0.0-2.0); EOSINOPHILS % (AUTO) 5.9 % (0.0-6.0); HEMATOCRIT 30 % (39-51); HEMOGLOBIN 9.8 g/dL (13.5-17.5); LYMPHOCYTES # (AUTO) 1.4 /CMM (0.8-4.8); LYMPHOCYTES % (AUTO) 13.9 % (20.0-44.0); MEAN CORPUSCULAR HGB CONC 33 g/dl (31.0-36.0); MEAN CORPUSCULAR VOLUME 72 fL (80-96); MONOCYTES # (AUTO) 0.8 /CMM (0.1-1.30); MONOCYTES % (AUTO) 7.5 % (2.0-12.0); NEUTROPHILS # (AUTO) 7.4 /CMM (1.8-8.9); NEUTROPHILS % (AUTO) 72.1 % (43.0-81.0); PLATELET COUNT (AUTO) 459 /CMM (150-450); RED BLOOD CELL COUNT(AUTO) 4.14 MIL/uL (4.5-6.0); WHITE BLOOD COUNT (AUTO) 10.2 K/uL (4.3-11.0)
[2018-10-17 06:42] VITALS: BP 194/118
[2018-10-17 06:43] LABS: CALCIUM, SERUM 8.1 mg/dL (8.5-10.1); CREATININE 2.2 mg/dL (0.6-1.3); POTASSIUM 4.7 mmol/L (3.5-5.1)
--- NOTE | 2018-10-17 06:43 | NUR ---
PT'S FAMILY MEMBER IS AT THE BEDSIDE. PT IS ON 2L O2 VIA NC. PT REC'D A URINAL.
--- NOTE | 2018-10-17 06:52 | NUR ---
PT AMBULATED TO THE BATHROOM WITH A SLOW STEADY GAIT.
[2018-10-17 06:55] LABS: BILIRUBIN,DIRECT 0.1 mg/dL (0.0-0.2); BILIRUBIN,TOTAL 0.2 mg/dL (0.2-1.0); TOTAL PROTEIN, SERUM 6.2 g/dL (6.4-8.2)
[2018-10-17 06:57] LABS: ALBUMIN 1.4 g/dL (3.4-5.0)
[2018-10-17] MEDS ORDERED: TRAMADOL HCL 50 MG TABLET ONE (07:04)
--- NOTE | 2018-10-17 07:09 | NUR ---
PT REFUSED MEDICATION STATING THAT IT IS NOT A PAIN MEDICATION. PT WAS TOLD THAT IT WAS AND CONSIDERED A NARCOTIC. PT STATED:"DON'T ARGUE WITH ME, IT'S NOT A NARCOTIC AND IT DOES NOT WORK FOR ME". " TELL THE DR THAT SHE CAN SHOVE IT." MEDICATION WAS RETURNED AND NOTIFIED.
--- NOTE | 2018-10-17 07:23 | NUR ---
PT IS COMPLAINING ABOUT DR GUERRERO'S CARE. PT WANTS DILAUDID AND STATED: " I ALWAYS COME TO THIS ER AND GET TAKEN CARE OF. I ALWAYS GET [address] IS ON A POWER TRIP." PT STATED: JUST GET ME THE RELEASE PAPERWORK AND I'LL GET OUT OF HERE. THIS IS RIDICULOUS." PT WAS TOLD THAT HE CAN SIGN OUT AMA. PT STATED: "OK". I REMOVED THE PT'S IV. Catheter intact and site benign. Pressure and 4x4 applied to site. No bleeding noted. PT THEN WAS GIVEN THE AMA PAPERWORK AND REFUSED TO SIGN THE PAPER AND DEMANDED TO SPEAK TO THE DR'S CASTING OPERATOR HELPER OR SEE ANOTHER DR. PT WAS TOLD THAT THE DR WAS THE SENIOR PERSON IN THE ER AND WAS THE ONLY ONE FOR THE NEXT 8 HRS. PT STATED THAT HE WANTED TO SPEAK TO THE NURSING CASTING OPERATOR HELPER. KARMA, NURSING CASTING OPERATOR HELPER, WAS CALLED AND SHE WILL BE OVER ONCE SHE IS FINISHED GIVING REPORT.
[2018-10-17] MEDS ORDERED: TRAMADOL HCL 50 MG TABLET PO ONE (07:30)
--- NOTE | 2018-10-17 08:15 | NUR ---
PT CALLED NURSE TO THE ROOM ASKING REGARDING SPEAKING TO NURSING SUP, NURSING SUP IS AWARE AND IS ON THE WAY. PT DID NOT WANT TO WAIT, ALSO REFUSED TO SIGN AMA FORM AND WALKED OUT. DR. GUERRERO AWARE.
== END 2018-10-17 08:19 | disposition left against medical advice (07) ==
LOC: ER 05:55
DX: I11.0 Hypertensive heart disease with heart failure (principal); I50.9 Heart failure, unspecified; E11.65 Type 2 diabetes mellitus with hyperglycemia; N28.9 Disorder of kidney and ureter, unspecified; E66.01 Morbid (severe) obesity due to excess calories; Z68.41 Body mass index [BMI] 40.0-44.9, adult; Z91.19 Patient's noncompliance with other medical treatment and regimen; Z88.6 Allergy status to analgesic agent; Z79.899 Other long term (current) drug therapy; Z79.4 Long term (current) use of insulin
CPT/HCPCS: 36415; 71045; 80048; 80076; 83880; 84484; 85025; 93005; 96374; 99284; J1940

== ENCOUNTER 2019-01-31 09:37 | Inpatient (IN) | payer MEDICAID ==
[~2019-01-31] VITALS: Ht 182.9 cm; Wt 149.2 kg
[2019-01-31 17:59] VITALS: BP 160/98
--- NOTE | 2019-01-31 18:01 | NUR ---
RN NOTES RECEIVED PATIENT FROM [facility] DIRECT ADMIT. PATIENT IS A/OX4, ABLE TO MAKE NEEDS KNOWN. NOT IN ANY FORM OF DISTRESS, NO SOB. COMPLAINTS OF FLANK 6/10 SHARP, WILL ADMINISTER PAIN MEDS. PLACED ON TELEMONITOR, SR 85. SATTING 94% ROOM AIR. BELONGINGS CHECKED AND NOTED IT ON THE LIST. REORIENTED AND SITUATED PATIENT IN THE ROOM. NEEDS ATTENDED. DR BELLO MADE AWARE THAT PATIENT IS IN THE UNIT AND NEEDS PAIN MEDICATIONS AND DIET ORDERS. PER MD HE'LL PUT IN THE ORDERS. BED IN LOW/LOCKED POSITION, SIDERAILS UPX2, CALL LIGHT IN REACH. WILL ENDORSED TO NIGHT RN FOR ADMISSION.
[2019-01-31] MEDS ORDERED: Z GUARD REMEDY 2 OZ OINT TP PRN (19:00)
[2019-01-31] MEDS ORDERED: HYDROCODONE/APAP 5/325MG 1 EACH TABLET PO PRN (19:00)
[2019-01-31] MEDS ORDERED: MAGNESIUM HYDROXIDE 30 ML UDC PO PRN (19:00)
[2019-01-31] MEDS ORDERED: ONDANSETRON HCL/PF 4 MG/2 ML VIAL IVP PRN (19:00)
[2019-01-31] MEDS ORDERED: ZOLPIDEM TARTRATE 5 MG TABLET PO PRN (19:00)
[2019-01-31] MEDS ORDERED: MAG HYDROX/AL HYDROX/SIMETH 30 ML UDC PO PRN (19:00)
[2019-01-31] MEDS ORDERED: BUMETANIDE INJ 0.25 MG/ML VIAL IV SCH (19:00)
[2019-01-31] MEDS ORDERED: ACETAMINOPHEN 325 MG TABLET PO PRN (19:00)
--- NOTE | 2019-01-31 19:15 | NUR ---
tele assistant manager retail initial notes received report from am nurse Nabil/RN and seen pt in bed resting but arouses to touch and to his name. denies any pain or any discomfort at this time. refusing to have the bumex iv even the blood drawn . i told him the purpose of it and insisting that he doesn't have any nutrients yet for 15 hrs since from [place]. i spoke to him that I can give him sandwich and juice but pt started getting mad and saying i need real food and if you can't give me i don't want any blood test or any meds . I spoke to him and saying ok I will try what I can do. No signs of any acute distress noted at this time. urine output 800ml and yellow in color noted. Addendum: 02/02/19 at 2337 by JESSICA SILVA LVN correction : i told him the purpose of bumex but pt insisting that he doesn't have any nutrients yet for 15 hrs since from [place].
[2019-01-31 20:00] VITALS: BP 164/87
--- NOTE | 2019-01-31 20:00 | NUR ---
Tele factory engineer notes pt resting in bed without any acute distress noted. Breathing even and non-labored, refused to be touch at this time. will continue monitoring. Tele Sinus Rhythm per monitor. place call light at reach.
--- NOTE | 2019-01-31 21:00 | NUR ---
ROUSTABOUT CREW LEADER NOTE Assume care of this patient at this time. Patient was upset for not receiving his medication for pain at this time. Explained to patient that medication order of Morphine will be obtain since patient claimed he is not taking the ordered Medication. Patient refused any treatment/medication unless his pain is managed. Bumex due still pending at this time.
[2019-01-31] MEDS: MORPHINE SULFATE INJ 2 MG/ML DISP.SYRIN IV PRN (22:12)
[2019-01-31 22:57] LABS: BASOPHILS % (AUTO) 0.4 % (0.0-2.0); EOSINOPHILS % (AUTO) 4.7 % (0.0-6.0); HEMATOCRIT 28 % (39-51); HEMOGLOBIN 9.1 g/dL (13.5-17.5); LYMPHOCYTES # (AUTO) 0.7 /CMM (0.8-4.8); LYMPHOCYTES % (AUTO) 8.5 % (20.0-44.0); MEAN CORPUSCULAR HGB CONC 32 g/dl (31.0-36.0); MEAN CORPUSCULAR VOLUME 66 fL (80-96); MONOCYTES # (AUTO) 0.6 /CMM (0.1-1.30); MONOCYTES % (AUTO) 7.3 % (2.0-12.0); NEUTROPHILS # (AUTO) 6.3 /CMM (1.8-8.9); NEUTROPHILS % (AUTO) 79.1 % (43.0-81.0); PLATELET COUNT (AUTO) 435 /CMM (150-450); RED BLOOD CELL COUNT(AUTO) 4.26 MIL/uL (4.5-6.0)
[2019-01-31 23:26] LABS: ALANINE AMINOTRANSFERASE 9 U/L (12-78); ALKALINE PHOSPHATASE 63 U/L (46-116); ASPARTATE AMINOTRANSFERASE 12 U/L (15-37); B-TYPE NATRIURETIC PEPTIDE 11657 PG/ML (0-125); BILIRUBIN,TOTAL 0.2 mg/dL (0.2-1.0); CALCIUM, SERUM 7.7 mg/dL (8.5-10.1); CARBON DIOXIDE 22 mmol/L (21-32); CHLORIDE 111 mmol/L (98-107); CREATININE 2.7 mg/dL (0.6-1.3); GLUCOSE 123 mg/dL (74-106); MAGNESIUM 1.9 mg/dL (1.8-2.4); PHOSPHORUS 4.4 mg/dL (2.5-4.9); POTASSIUM 5.4 mmol/L (3.5-5.1); SODIUM SERUM 140 mmol/L (136-145); TOTAL PROTEIN, SERUM 5.8 g/dL (6.4-8.2); UREA NITROGEN, BLOOD 35 mg/dL (7-18)
[2019-01-31 23:27] LABS: ALBUMIN 1.2 g/dL (3.4-5.0)
[2019-01-31 23:30] LABS: THYROID STIMULATING HORMONE 6.583 uIU/mL (0.358-3.74)
[2019-01-31] MEDS ORDERED: AMLO5TAB9 PO (23:59)
[2019-01-31] MEDS ORDERED: INSU100V10 SQ (23:59)
[2019-01-31] MEDS ORDERED: CYAN-51 PO (23:59)
[2019-01-31] MEDS ORDERED: FOLI0.8T2 PO (23:59)
[2019-01-31] MEDS ORDERED: BUME1TAB9 PO (23:59)
[2019-01-31] MEDS ORDERED: LEVO50TA8 PO (23:59)
[2019-01-31] MEDS ORDERED: ISOS30TA6 PO (23:59)
[2019-01-31] MEDS ORDERED: ASPI-1169 PO (23:59)
[2019-01-31] MEDS ORDERED: HYDR-4077 PO (23:59)
[2019-01-31] MEDS ORDERED: INSULIN GLULISINE (23:59)
[2019-01-31] MEDS ORDERED: CLON0.1T PO (23:59)
[2019-01-31] MEDS ORDERED: ATOR40TA GT (23:59)
[2019-02-01] VITALS: BP 185/99
[2019-02-01] MEDS ORDERED: CARV25TA PO (00:02)
[2019-02-01] MEDS ORDERED: FOLI0.8T2 PO (00:02)
[2019-02-01] MEDS ORDERED: ZINC220C6 PO (00:02)
[2019-02-01] MEDS ORDERED: FAMO20TA8 PO (00:02)
[2019-02-01] MEDS ORDERED: INSU100V7 SQ (00:02)
[2019-02-01] MEDS ORDERED: LISINOPRIL (00:02)
[2019-02-01 01:20] VITALS: BP 141/86
[2019-02-01] MEDS ORDERED: CARVEDILOL 25 MG TABLET PO SCH (01:30)
[2019-02-01] MEDS: ATORVASTATIN 40 MG TABLET PO SCH ×2 (01:39→21:44)
[2019-02-01] MEDS: AMLODIPINE BESYLATE 5 MG TABLET PO SCH ×2 (01:39→08:44)
[2019-02-01] MEDS: DILTIAZEM HCL CD 240 MG PO SCH ×2 (01:39→08:40)
--- NOTE | 2019-02-01 01:41 | NUR ---
BATCH ATTENDANT NOTES Per patient, he will take Coreg in daytime. Will continue to monitor BP accordingly.
[2019-02-01 04:00] VITALS: BP 170/89
[2019-02-01] MEDS: MORPHINE SULFATE INJ 2 MG/ML DISP.SYRIN IV PRN (04:13)
--- NOTE | 2019-02-01 04:16 | NUR ---
RN NOTES COMPLAINED OF BACK PAIN- MORPHINE 2 MG IV GIVEN ORDERED, V/S STABLE
[2019-02-01 06:41] LABS: BASOPHILS % (AUTO) 0.4 % (0.0-2.0); EOSINOPHILS % (AUTO) 6.1 % (0.0-6.0); HEMATOCRIT 29 % (39-51); HEMOGLOBIN 9.1 g/dL (13.5-17.5); LYMPHOCYTES % (AUTO) 14.1 % (20.0-44.0); MEAN CORPUSCULAR HGB CONC 32 g/dl (31.0-36.0); MEAN CORPUSCULAR VOLUME 67 fL (80-96); MONOCYTES # (AUTO) 0.6 /CMM (0.1-1.30); MONOCYTES % (AUTO) 8.6 % (2.0-12.0); NEUTROPHILS # (AUTO) 4.9 /CMM (1.8-8.9); NEUTROPHILS % (AUTO) 70.8 % (43.0-81.0); PLATELET COUNT (AUTO) 446 /CMM (150-450); RED BLOOD CELL COUNT(AUTO) 4.31 MIL/uL (4.5-6.0); WHITE BLOOD COUNT (AUTO) 6.8 K/uL (4.3-11.0)
[2019-02-01 06:53] LABS: CALCIUM, SERUM 7.9 mg/dL (8.5-10.1); CREATININE 2.7 mg/dL (0.6-1.3); PHOSPHORUS 4.4 mg/dL (2.5-4.9); POTASSIUM 4.9 mmol/L (3.5-5.1)
--- NOTE | 2019-02-01 07:00 | NUR ---
TRIBAL JUDGE NOTES Patient asleep, easily awaken. No new complaints made. All nursing needs attended. Medicated for pain, noted effective. Call light within easy reach. Kept on bed clean, dry and comfortable. On tele monitor with NSR noted. Endorsed.
--- NOTE | 2019-02-01 07:10 | NUR ---
RN OPENING NOTES PATIENT SLEEPING IN BED, AROUSES EASILY. A/OX4, ABLE TO MAKE NEEDS KNOWN. NOT IN ANY FORM OF DISTRESS, NO SOB. NO S/S OF PAIN OR DISCOMFORT. IV ACCES INTACT AND PATENT. NEEDS ATTENDED. BE DIN LOW/LOCKED POSITION, SIDERAILS UPX2, CALL LIGHT IN REACH. WILL CONTINUE TO MONIOTR ACCORDINGLY.
[2019-02-01 08:00] VITALS: BP 179/86
[2019-02-01 08:05] LABS: EOSINOPHILS % (MANUAL) 5 % (0-4); LYMPHOCYTES % (MANUAL) 15 % (16-48); MONOCYTES % (MANUAL) 8 % (0-11.0); NEUTROPHILS % (MANUAL) 72 (42-76)
[2019-02-01] MEDS: VIT B CMPLX 3/FA/VIT C/BIOTIN 1 TAB TABLET PO SCH (08:39)
[2019-02-01] MEDS: FAMOTIDINE (20 MG) 20 MG TABLET PO SCH (08:40)
[2019-02-01] MEDS: CARVEDILOL 12.5 MG TABLET PO SCH (08:40)
[2019-02-01] MEDS: ISOSORBIDE MONONITRATE (30MG) 30 MG TAB.SR.24H PO SCH (08:40)
[2019-02-01] MEDS: LEVOTHYROXINE SODIUM 50 MCG TABLET PO SCH (08:41)
[2019-02-01] MEDS: ASPIRIN 81 MG TAB.CHEW PO SCH (08:41)
[2019-02-01] MEDS: hydrALAZINE HCL 50 MG TABLET PO SCH (08:43)
[2019-02-01] MEDS: CLONIDINE HCL 0.1 MG TABLET PO SCH (08:43)
[2019-02-01] MEDS: LINAGLIPTIN 5 MG TABLET PO SCH (08:43)
[2019-02-01] MEDS: ZINC SULFATE 220 MG CAPSULE PO SCH (08:44)
[2019-02-01] MEDS: CYANOCOBALAMIN 500 MCG TABLET PO SCH (08:44)
[2019-02-01] MEDS ORDERED: LISINOPRIL (5MG) 5 MG TABLET PO SCH (09:00)
[2019-02-01] MEDS ORDERED: FERROUS SULFATE (325 MG) 325 MG/TAB TABLET PO SCH (09:00)
--- NOTE | 2019-02-01 11:20 | NUR ---
RN NOTES PATIENT ASK FOR PAIN MEDS. MORPHINE WAS DC BY DOCTOR RIOS. PER DR RIOS'S NOTES "DC MS UNTIL SEEN BY PAIN MANAGEMENT". INFORMED BROWN VEAR NP. PER BROWN, HE WILL CONSULT DR OBANDO- PAIN MGT MD
--- NOTE | 2019-02-01 11:55 | NUR ---
WOUND CARE CONSULT: PT FOLLOWED BY PODIATRY TEAM FOR WOUNDS. DEFER TO PODIATRY TEAM FOR WOUND TREATMENT PLAN. WILL SEE PRN. CURRENT MICHAEL SCORE IS 22.
--- NOTE | 2019-02-01 12:00 | NUR ---
RN NOTES REFUSED TO BE SEEN BY PODIATRY. HE WILL REFUSED TILL HE GETS A PAIN MEDICATION.
--- NOTE | 2019-02-01 15:50 | NUR ---
rn notes endorsed patient to jess goode. patient in stable condition.
--- NOTE | 2019-02-01 15:58 | NUR ---
MS RN NOTES REPORT GIVEN BY LILIAM LÓPEZ
--- NOTE | 2019-02-01 15:58 | NUR ---
MS RN NOTES TOOK OVER CARE, PATIENT IN BED ALERT ORIENTED X 4. NO ACUTE DISTRESS NOTED. BREATHING UNLABORED. NO SOB NOTED. SAFETY MEASURES IN PLACE. CALL LIGHT WITHIN REACH. WILL CONTINUE TO MONITOR ACCORDINGLY.
--- NOTE | 2019-02-01 16:08 | NUR ---
PATIENT REFUSED ECHOCARDIOGRAM TEST. INFORMED ATTENDING RN.
[2019-02-01 16:11] VITALS: BP 151/71
--- NOTE | 2019-02-01 19:00 | NUR ---
MS RN NOTES PATIENT IN BED, ALERT ORIENTED X 4. NO ACUTE DISTRESS NOTED, BREATHING UNLABORED. NO SOB NOTED. IV ACCESS PATENT AND INTACT, NO REDNESS OR SWELLING NOTED.KEPT CLEAN DRY AND COMFORTABLE. SAFETY MEASURES IN PLACE. CALL LIGHT WITHIN REACH. WILL ENDORSE TO NIGHT NURSE FOR CONTINUITY OF CARE.
--- NOTE | 2019-02-01 19:29 | NUR ---
RRN NOTES: RECIEVED LYING ON HIS RIGHT SIDE LEGS DISCOLORED SKIN TIGHT AND SOCKS BILATERAL FEET. REFUSED TO HAVE HIS WOUNDS CHECKED AND VITAL SIGNS UNTIL HE RECIEVED PAIN MEDICATION. OFFERED TO ELEVATE HIS LEGS AND HE REFUSED. LEGS WARM ISOLATION R/T HX OF MRSA OD THE WOUNDS BILATERAL PLANTER FOOT WOUNDS
--- NOTE | 2019-02-01 19:53 | NUR ---
RN NOTES: CALLED JUNIOR TEJADA MD REGARDING PATIENT REFUSING VITAL SIGNS AND LAB DRAWS (TROP LEVEL) ANF TO HAVE HIS WOUNDS CHECKED UNTIL HE RECIEVING MEDICATION. ALSO LEFT A MESSAGE TO ALERT HER THAT TYLENOL ORDERED AND HE IS ALLERGIC TO TYLENOL.
--- NOTE | 2019-02-01 20:09 | NUR ---
RN NOTES: RETURN CALL FROM MD TEJADA SHE IS AWARE OF THIS PATIENT AND REQUISTING MEDICATION. NO ORDERED RECIEVED. SHE STATED SHE KNOW THE PATIENT SHE ADMITTED HIM
[2019-02-01] MEDS: INSULIN GLARGINE, 100 UNIT/ML CARTRIDGE SQ SCH (21:55)
--- NOTE | 2019-02-02 05:15 | NUR ---
ENDING NOTES: AT THE BEGINNING OF THIS SHIFT PATIENT REFUSED NURSE TO CHECK HIS WOULNS AND CHANGE THE DRESSING, REFUSED LABS TO BE DRAWN, (TROPONIN) , STATED HE NEED PAIN MEDICATION FIRST. CALL PLACED TO JUNIOR TEJADA AND SHE DIDN'T WANT TO ORDER MEDICATIONS. TYLENOL WAS ORDERED AND HE STATES HE IS ALLERGIC TO TYLENOL. PATIENT ROBERT A LARGE SNACK, SANDWITCH TUNA, LISA CRACKERS, MILK AND JUICE. NEVER C/O PAIN AFTERWARDS. NOTED WHEN CHECKING IN ON PATIENT FOUND HIM USUALLY ASLEEP. CLEAN SOCKS GIVEN TO THE PATIENT. INSTRUCTED HIM ON THE NEED TO KEEP HIS WOUNDS CLEAN AND CHANGE THE DRESSING DAILY TO CHECK ON THE WOUNDS. HE AGAIN STATED "NOT UNTIL I GET SOME MEDICATION" INFORMED HIM THAT THE MD ORDERED A CONSULT ON PAIN MAGEMENT TO SEE HIM. AMBULATES TO THE BATHROOM STEADY GAIT. REFUSED HIS HS LANTUS 35 UNITS STATED HE DOEN'T NEED IT WHEN HIS BLOOD SUGAR 125. EXPLAINED TO HIM ABOUT LONG LASTING INSULIN IN THE DOES, CONTINUES TO REFUSE TO TAKE IT
--- NOTE | 2019-02-02 07:36 | NUR ---
M/S RN OPENING NOTES RECEIVED PT ON BED ASLEEP BUT EASILY AROUSABLE, A/OX4 AND ABLE TO MAKE NEEDS KNOWN. NO SOB NOTED. DENIES PAIN AND DISCOMFORT. ABD SOFT AND NON DISTENDED WITH ACTIVE BOWEL SOUNDS, URINAL ON BEDSIDE WITH BRP. SKIN WARM TO TOUCH AND DRY. WANTING TO SLEEP AT THIS TIME. LEFT UPPER ARM PATENT IN FLUSHING. ALL CONCERNS ADDRESSED. CALL LIGHT WITHIN REACH. WILL CONTINUE TO EVAL CARE.
[2019-02-02 08:00] VITALS: BP 149/78
[2019-02-02] MEDS: LEVOTHYROXINE SODIUM 50 MCG TABLET PO SCH (08:10)
[2019-02-02] MEDS: VIT B CMPLX 3/FA/VIT C/BIOTIN 1 TAB TABLET PO SCH (08:30)
[2019-02-02] MEDS: LINAGLIPTIN 5 MG TABLET PO SCH (08:31)
[2019-02-02] MEDS: FAMOTIDINE (20 MG) 20 MG TABLET PO SCH (08:31)
[2019-02-02] MEDS: ISOSORBIDE MONONITRATE (30MG) 30 MG TAB.SR.24H PO SCH (08:31)
[2019-02-02] MEDS: hydrALAZINE HCL 50 MG TABLET PO SCH (08:31)
[2019-02-02] MEDS: CYANOCOBALAMIN 500 MCG TABLET PO SCH (08:31)
[2019-02-02] MEDS: AMLODIPINE BESYLATE 5 MG TABLET PO SCH (08:32)
[2019-02-02] MEDS: ZINC SULFATE 220 MG CAPSULE PO SCH (08:32)
[2019-02-02] MEDS: ASPIRIN 81 MG TAB.CHEW PO SCH (08:32)
[2019-02-02] MEDS: CARVEDILOL 12.5 MG TABLET PO SCH (08:32)
[2019-02-02] MEDS: CLONIDINE HCL 0.1 MG TABLET PO SCH (08:33)
[2019-02-02] MEDS: DILTIAZEM HCL CD 240 MG PO SCH (08:36)
--- NOTE | 2019-02-02 09:10 | NUR ---
M/S RN NOTES WINNIE FROM LABS CAME, PT REFUSED LAB DRAW X 3 SINCE YESTERDAY. TROPONIN CANCELLED PER MD ORDER.
--- NOTE | 2019-02-02 09:34 | NUR ---
M/S RN NOTES PATIENT SEEN BY DR. ROBISON (FOLD SKIVER), PT REFUSED X 3 (2 TIMES 02/01/19 AND 1 TIME 02/02/19). SIGNING OFF CONSULT PER MD, CAN BE CONTACTED IF PT AGREED.
--- NOTE | 2019-02-02 11:32 | NUR ---
M/S RN NOTES PT SEEN BY BROWN ONEILL. PT REFUSING TO BE SEEN.
--- NOTE | 2019-02-02 12:00 | NUR ---
M/S RN NOTES CLARIFIED WITH BROWN JOB DEVELOPER FOR [employer] FOR PAIN MANAGEMENT CONSULT PER ENDORSEMENT GIVEN FROM NIGHT NURSE, OR ANY MEDICATION THAT CAN BE PRESCRIBED FOR BACK PATIENT PER PATIENT COMPLAIN. WAITING FOR RESPONSE.
--- NOTE | 2019-02-02 12:35 | NUR ---
M/S RN NOTES PT EATING LUNCH, DOESN'T WANT TO BE BOTHERED. CALL LIGHT WITHIN REACH FOR ANY CONCERNS.
--- NOTE | 2019-02-02 13:21 | NUR ---
M/S RN NOTES FOLLOWED UP PAIN REFERRAL TO BROWN MATERIALS ANALYST WITH NEW ORDER MORPHINE INJ 4 MG Q6 PRN, AND REFERRED FOR PAIN MANAGEMENT. ORDER READ BACK, NOTED AND CARRIED OUT. PT NOTIFIED
--- NOTE | 2019-02-02 13:34 | NUR ---
M/S RN NOTES PAGED DR. OBANDO FOR PAIN MANAGEMENT CONSULT
[2019-02-02] MEDS: MORPHINE SULFATE INJ 4 MG/ML DISP.SYRIN IV PRN ×2 (13:36→20:11)
--- NOTE | 2019-02-02 13:58 | NUR ---
M/S RN NOTES ADMINISTERED MORPHINE 4 MG IV PUSH ORDERED. PT STATED HE USED TO RECEIVE MORPHINE BEFORE WITH NO REACTION. NO NOTED REACTION AFTER ADMINISTERING AT THIS TIME. PT ASLEEP. WILL CONTINUE TO MONITOR.
[2019-02-02 16:00] VITALS: BP 157/94
--- NOTE | 2019-02-02 18:41 | NUR ---
M/S RN CLOSING NOTED PT A/OX4, ABLE TO MAKE NEEDS KNOWN. NO SOB. DENIES PAIN AT THIS TIME, MORPHINE EFFECTIVE, PT CLARIFIED ACETAMINOPHEN BASED ALLERGIES. ABD SOFT AND NON DISTENDED WITH ACTIVE BOWEL SOUNDS, LBM PRIOR TO ADMISSION AT [place] WITH "PELLET STOOLS" STATED. URINE X 3 VIA TOILET, RE-GIVEN INSTRUCTION FOR NEED OF URINE FOR CULTURE. PT PLANTAR WOUND TO BE DONE BY NIGHT NURSE PREFERRED BEFORE SLEEPING. SKIN WARM TO TOUCH AND DRY. ALL CONCERNS ATTENDED. CALL LIGHT WITHIN REACH. ENDORSED PT CARE TO NEXT NURSE
--- NOTE | 2019-02-02 19:40 | NUR ---
M/S RN NOTES RECEIVED PATIENT AWAKE ON BED. A/OX4 AND ABLE TO MAKE NEEDS KNOWN. NO SOB NOTED. DENIES PAIN AND DISCOMFORT AT THIS TIME. ABDOMEN IS SOFT AND NON DISTENDED WITH ACTIVE BOWEL SOUNDS, URINAL ON BEDSIDE WITH BRP. SKIN WARM TO TOUCH AND DRY. WITH IV ACCESS ON HIS LEFT UPPER ARM PATENT IN FLUSHING. SAFETY MEASURES IN PLACE, CALL LIGHT WITHIN EASY REACH, NEEDS ANTICIPATED, WILL MONITOR ACCORDINGLY.
[2019-02-02 20:00] VITALS: BP 179/99
[2019-02-02 20:38] VITALS: BP 179/99
[2019-02-02] MEDS: INSULIN GLARGINE, 100 UNIT/ML CARTRIDGE SQ SCH (21:58)
[2019-02-02] MEDS: ATORVASTATIN 40 MG TABLET PO SCH (22:00)
[2019-02-03] MEDS: MORPHINE SULFATE INJ 4 MG/ML DISP.SYRIN IV PRN ×3 (04:07→21:01)
--- NOTE | 2019-02-03 04:07 | NUR ---
RN NOTES PATIENT COMPLAINTS OF SEVERE BACK / FLANK PAIN, 10/10 PAIN SCALE, NON PHARMACOLOGICAL INTERVENTION INITIATED, PATIENT REQUESTED PRN MORPHINE 4MG IV GIVEN, SAFETY MEASURES IN PLACE, WILL MONITOR.
--- NOTE | 2019-02-03 05:08 | NUR ---
RN NOTES PATIENT RESTING COMFORTABLY AT THIS TIME, NO ADVERSE REACTION NOTED, AFTER GIVING MORPHINE IV, BREATHING EVEN AND UNLABORED, EMPHASIZED THAT PRN MEDICATION ARE NOT A ROUTINE MEDICATION. PATIENT VERBALIZES UNDERSTANDING. WILL MONITOR ACCORDINGLY.
[2019-02-03 06:31] LABS: APPEARANCE,URINE CLEAR (CLEAR); BILIRUBIN,URINE NEGATIVE (NEGATIVE); BLOOD, URINE SMALL Ery/uL (NEGATIVE); COLOR,URINE YELLOW (YELLOW); KETONES,URINE NEGATIVE (NEGATIVE); LEUKOCYTE ESTERASE ,URINE NEGATIVE (NEGATIVE); NITRITE, URINE NEGATIVE (NEGATIVE); PH,URINE 6.5 (5.0-8.0); PROTEIN,URINE >=300 mg/dl (NEGATIVE); UGLUCOSE 250 MG/DL mg/dL (NEGATIVE); UROBILINOGEN,URINE 0.2 EU/dL (0.2)
[2019-02-03 06:34] LABS: CREATININE, URINE 52.8 MG/DL (30.0-125.0)
--- NOTE | 2019-02-03 06:35 | NUR ---
M/S RN NOTES PATIENT WAS ABLE TO REST AND SLEPT AT INTERVALS, A/OX4 AND ABLE TO MAKE NEEDS KNOWN. NO SOB NOTED. DENIES PAIN AND DISCOMFORT AT THIS TIME. SAFETY MEASURES IN PLACE, CALL LIGHT WITHIN EASY REACH, ALL NEEDS ANTICIPATED, WILL ENDORSE TO AM NURSE FOR CONTINUITY OF CARE.
[2019-02-03 06:48] LABS: URINE TOTAL PROTEIN 1419.6 mg/dL (0-11.9)
[2019-02-03] MEDS: LEVOTHYROXINE SODIUM 50 MCG TABLET PO SCH (07:31)
[2019-02-03 07:35] LABS: EOSINOPHIL,URINE None Seen
--- NOTE | 2019-02-03 07:45 | NUR ---
M/S RN OPENING NOTES RECEIVED PT SITTING ON BEDSIDE, A/O X4. RESPIRATION EVEN AND NON LABORED WITH NO ACUTE RESPIRATORY DISTRESS, REPORTED SOB LAST NIGHT, EDUCATED O2 PRN USE WHICH IS AVAILABLE IN THE ROOM, WILL NOTIFY RN WHEN SOB PRESENT. ABDOMEN SOFT AND NON DISTENDED WITH ACTIVE BOWEL SOUNDS, URINE COLLECTED AND WAITING FOR RESULT. DENIES PAIN AND DISCOMFORT. SKIN WARM TO TOUCH AND DRY, BLE NON PITTING EDEMA, EXPLAINED AMBULATION TOLERATED, ELEVATING LEGS WHEN IN BED, PT VERBALIZED UNDERSTANDING. IV SITE AT LEFT UPPER ARM PATENT IN FLUSHING, NO S/SX ON INFILTRATION. ALL CONCERNS ADDRESSED. CALL LIGHT WITHIN REACH. WILL MONITOR CARE.
[2019-02-03 08:00] VITALS: BP 171/99
[2019-02-03] MEDS: DILTIAZEM HCL CD 240 MG PO SCH (08:06)
[2019-02-03] MEDS: ASPIRIN 81 MG TAB.CHEW PO SCH (08:06)
[2019-02-03] MEDS: ZINC SULFATE 220 MG CAPSULE PO SCH (08:06)
[2019-02-03] MEDS: LINAGLIPTIN 5 MG TABLET PO SCH (08:06)
[2019-02-03] MEDS: VIT B CMPLX 3/FA/VIT C/BIOTIN 1 TAB TABLET PO SCH (08:06)
[2019-02-03] MEDS: CYANOCOBALAMIN 500 MCG TABLET PO SCH (08:06)
[2019-02-03] MEDS: CLONIDINE HCL 0.1 MG TABLET PO SCH (08:07)
[2019-02-03] MEDS: ISOSORBIDE MONONITRATE (30MG) 30 MG TAB.SR.24H PO SCH (08:07)
[2019-02-03] MEDS: FAMOTIDINE (20 MG) 20 MG TABLET PO SCH (08:07)
[2019-02-03] MEDS: CARVEDILOL 12.5 MG TABLET PO SCH (08:07)
[2019-02-03] MEDS: hydrALAZINE HCL 50 MG TABLET PO SCH (08:07)
[2019-02-03] MEDS: AMLODIPINE BESYLATE 5 MG TABLET PO SCH (08:07)
--- NOTE | 2019-02-03 08:14 | NUR ---
M/S RN NOTES PT WITH SOB WITH EXERTION, O2 ADMINISTERED AT 3LPM VIA NASAL CANNULA. O2 FROM 94% TO 98% WITH O2 ON.
--- NOTE | 2019-02-03 09:12 | NUR ---
M/S RN NOTES RE-CHECKED BP 156/92 MM HG. PT ASLEEP AT THIS TIME WITH 02 AT 3LPM VIA N/C, HOB ELEVATED.
--- NOTE | 2019-02-03 12:24 | NUR ---
M/S RN NOTES PT LUNCH 100%. NO SOB AT THIS TIME. O2 DISCONNECTED. WILL CONTINUE TO MONITOR CARE.
--- NOTE | 2019-02-03 14:30 | NUR ---
M/S RN NOTES PT ASLEEP BUT EASILY AROUSABLE. LEFT COMFORTABLE
[2019-02-03 16:00] VITALS: BP 148/83
--- NOTE | 2019-02-03 18:26 | NUR ---
M/S RN NOTES PT A/O X 4, RESPONSIVE TO ALL STIMULI, ABLE TO MAKE NEEDS KNOWN. RESPIRATION EVEN AND NON LABORED WITH NO ACUTE RESPIRATORY DISTRESS, MILD SOB PRESENCE IN EXERTION SUCH WALKING AND ABRUPT RE-POSITIONING, ABLE TO COPE UP AFTER DEEP BREATHING EXERCISES, BED ON SEMI FOWLERS, O2 PRESENT NEEDED. ABD SOFT AND NON DISTENDED WITH ACTIVE BOWEL SOUNDS. NO BM TODAY, PT STATED "I CAN FEEL LIKE I WANT TOO BUT JUST GAS". SKIN WARM TO TOUCH AND DRY, FEET PLANTAR CLEANSED WITH NS THEN COVER WITH DRY DRESSING. DENIES PAIN AT THIS TIME. IV SITE AT LEFT UPPER ARM PATENT IN FLUSHING. WAITING FOR PAIN MANAGEMENT CONSULT, TO CONTACT PODIATRY FOR CONSULT, PT STATED HE WILL COOPERATE. ALL CARE ATTENDED. ENDORSED CARE TO NEXT SHIFT.
--- NOTE | 2019-02-03 19:47 | NUR ---
RN OPENING NOTES RECEIVED PATIENT IN BED, ASLEEP, EASILY AROUSABLE TO VOICE. NO SIGNS OF RESPIRATORY DISTRESS. NO SHORTNESS OF BREATH NOTED.. IV SITE LEFT UPPER ARM PATENT, SL, FLUSHED, NO SIGNS OF INFECTION/INFILTRATION. SAFETY PRECAUTIONS IMPLEMENTED; CALL LIGHT WITHIN REACH, BED LOWEST POSITION, BED LOCKED, UPPER SIDE RAILS UP. WILL CLOSELY MONITOR PATIENT.
[2019-02-03 19:58] VITALS: BP 132/74
[2019-02-03 20:00] VITALS: BP 132/74
--- NOTE | 2019-02-03 21:02 | NUR ---
RN NOTES MORPHINE GIVEN FOR BACK PAIN, 12/25, PER PATIENT REQUEST 4MG IV MORPHINE TO BE GIVEN. VITAL SIGNS STABLE. WILL CONTINUE TO MONITOR.
[2019-02-03] MEDS: ATORVASTATIN 40 MG TABLET PO SCH (21:03)
[2019-02-03] MEDS: INSULIN GLARGINE, 100 UNIT/ML CARTRIDGE SQ SCH (21:43)
--- NOTE | 2019-02-03 21:43 | NUR ---
RN NOTES LANTUS 35 UNITS ADMINISTERED FOR BLOOD SUGAR 139. SNACKS OFFERED. WILL CONTINUE TO MONITOR.
[2019-02-04 05:34] VITALS: BP 157/95
[2019-02-04] MEDS: MORPHINE SULFATE INJ 4 MG/ML DISP.SYRIN IV PRN (05:35)
--- NOTE | 2019-02-04 05:36 | NUR ---
RN NOTES PATIENT REQUESTED MORPHINE FOR PAIN 9/10 LOWER BACK. VITALS ARE 157/95, PULSE 73, RR18, O2 SAT 96%. WILL CONTINUE TO MONITOR.
[2019-02-04 06:20] LABS: BASOPHILS % (AUTO) 0.4 % (0.0-2.0); EOSINOPHILS % (AUTO) 5.3 % (0.0-6.0); HEMATOCRIT 30 % (39-51); HEMOGLOBIN 9.6 g/dL (13.5-17.5); LYMPHOCYTES # (AUTO) 1.4 /CMM (0.8-4.8); LYMPHOCYTES % (AUTO) 20.8 % (20.0-44.0); MEAN CORPUSCULAR HGB CONC 32 g/dl (31.0-36.0); MEAN CORPUSCULAR VOLUME 67 fL (80-96); MONOCYTES # (AUTO) 0.7 /CMM (0.1-1.30); MONOCYTES % (AUTO) 9.7 % (2.0-12.0); NEUTROPHILS # (AUTO) 4.4 /CMM (1.8-8.9); NEUTROPHILS % (AUTO) 63.8 % (43.0-81.0); PLATELET COUNT (AUTO) 391 /CMM (150-450); RED BLOOD CELL COUNT(AUTO) 4.49 MIL/uL (4.5-6.0)
[2019-02-04 06:39] LABS: CALCIUM, SERUM 7.7 mg/dL (8.5-10.1); CREATININE 2.6 mg/dL (0.6-1.3); MAGNESIUM 2.2 mg/dL (1.8-2.4); PHOSPHORUS 4.7 mg/dL (2.5-4.9); POTASSIUM 5.4 mmol/L (3.5-5.1)
--- NOTE | 2019-02-04 06:53 | NUR ---
RN CLOSING NOTES PATIENT IS CURRENTLY ASLEEP, RESTING COMFORTABLY, EASILY AROUSABLE TO VOICE. NO SIGNS OF RESPIRATORY DISTRESS. NO SHORTNESS OF BREATH NOTED. NO COMPLAINTS OF PAIN OR DISCOMFORT AT THIS TIME. SAFETY PRECAUTIONS IMPLEMENTED; CALL LIGHT WITHIN REACH, BED LOWEST POSITION, BED LOCKED, UPPER SIDE RAILS UP. WILL CONTINUE TO CLOSELY MONITOR PATIENT AND WILL ENDORSE CARE TO DAYSHIFT NURSE FOR CONTINUITY OF CARE.
[2019-02-04 08:00] VITALS: BP 168/103
[2019-02-04] MEDS: CARVEDILOL 12.5 MG TABLET PO SCH (08:34)
[2019-02-04] MEDS: VIT B CMPLX 3/FA/VIT C/BIOTIN 1 TAB TABLET PO SCH (08:34)
[2019-02-04] MEDS: ISOSORBIDE MONONITRATE (30MG) 30 MG TAB.SR.24H PO SCH (08:35)
[2019-02-04] MEDS: DILTIAZEM HCL CD 240 MG PO SCH (08:35)
[2019-02-04] MEDS: LEVOTHYROXINE SODIUM 50 MCG TABLET PO SCH (08:35)
[2019-02-04] MEDS: CLONIDINE HCL 0.1 MG TABLET PO SCH (08:35)
[2019-02-04] MEDS: CYANOCOBALAMIN 500 MCG TABLET PO SCH (08:36)
[2019-02-04] MEDS: hydrALAZINE HCL 50 MG TABLET PO SCH (08:36)
[2019-02-04] MEDS: AMLODIPINE BESYLATE 5 MG TABLET PO SCH (08:36)
[2019-02-04] MEDS: ZINC SULFATE 220 MG CAPSULE PO SCH (08:36)
[2019-02-04] MEDS: FAMOTIDINE (20 MG) 20 MG TABLET PO SCH (08:36)
[2019-02-04] MEDS: ASPIRIN 81 MG TAB.CHEW PO SCH (08:36)
[2019-02-04] MEDS: LINAGLIPTIN 5 MG TABLET PO SCH (08:37)
[2019-02-04 16:00] VITALS: BP 180/97
--- NOTE | 2019-02-04 18:34 | NUR ---
GENERAL STUDIES PROGRAM CHAIR NOTES PT STABLE AT DISCHARGE. ALL PATIENT BELONGINGS ACCOUNTED FOR AND TAKEN HOME WITH PATIENT. ID AND IV REMOVED PRIOR TO DISCHARGE. ALL DISCHARGE PAPERWORK, DISCUSSED, SIGNED, COPIED, AND GIVEN TO THE PATIENT. PT ESCORTED OFF OF THE UNIT VIA WHEELCHAIR BY MADIE LOCKHART AT 1830.
== END 2019-02-04 18:26 | disposition home or self-care (01) | DRG 199 ==
LOC: TELE 17:27 → MED 02-01 08:11
PROVIDERS: ADMIT Nurse Practitioner Acute Care
DX: I16.0 Hypertensive urgency (principal); N17.0 Acute kidney failure with tubular necrosis; I50.23 Acute on chronic systolic (congestive) heart failure; D68.59 Other primary thrombophilia; E44.0 Moderate protein-calorie malnutrition; E11.21 Type 2 diabetes mellitus with diabetic nephropathy; C85.90 Non-Hodgkin lymphoma, unspecified, unspecified site; N13.30 Unspecified hydronephrosis; I16.9 Hypertensive crisis, unspecified; I13.0 Hypertensive heart and chronic kidney disease with heart failure and stage 1 through stage 4 chronic kidney disease, or unspecified chronic kidney disease; E11.22 Type 2 diabetes mellitus with diabetic chronic kidney disease; E11.42 Type 2 diabetes mellitus with diabetic polyneuropathy; E87.5 Hyperkalemia; I42.8 Other cardiomyopathies; N18.9 Chronic kidney disease, unspecified; D63.8 Anemia in other chronic diseases classified elsewhere; D50.9 Iron deficiency anemia, unspecified; Z68.41 Body mass index [BMI] 40.0-44.9, adult; E88.09 Other disorders of plasma-protein metabolism, not elsewhere classified; Z79.4 Long term (current) use of insulin; Z83.3 Family history of diabetes mellitus; Z87.441 Personal history of nephrotic syndrome; I42.7 Cardiomyopathy due to drug and external agent; F17.210 Nicotine dependence, cigarettes, uncomplicated; G47.33 Obstructive sleep apnea (adult) (pediatric); K21.9 Gastro-esophageal reflux disease without esophagitis; E66.01 Morbid (severe) obesity due to excess calories; E11.621 Type 2 diabetes mellitus with foot ulcer; L97.519 Non-pressure chronic ulcer of other part of right foot with unspecified severity; L97.529 Non-pressure chronic ulcer of other part of left foot with unspecified severity; E11.65 Type 2 diabetes mellitus with hyperglycemia; F15.90 Other stimulant use, unspecified, uncomplicated
CPT/HCPCS: 36415; 71045-TC; 71250-TC; 80048-TC; 80053-TC; 80061-TC; 81000-TC; 82570-TC; 82962-TC; 83735-TC; 83880; 84100-TC; 84155-TC; 84300-TC; 84443-TC; 84484-TC; 85025-TC; 87081-TC; 87086-TC; A6403; G0378; J1815; J2270; J2405; J3490